=== PATIENT | male | born 1960 | race African-American/Black ===

== ENCOUNTER 2021-03-27 12:15 | Observation (INO) | payer OTHER ==
[2021-03-27 12:20] LABS: Glucose,Whole Blood 172 mg/dL (75-99)
[2021-03-27] MEDS ORDERED: hydrALAZINE HCL 20 MG/ML 1 ML VIAL IVP STA (12:35)
[2021-03-27] MEDS ORDERED: SODIUM CHLORIDE 0.9% 500 ML 500 ML IV ONE (12:35)
--- NOTE | 2021-03-27 12:37 | ED ---
General Adult HPI - General Chief complaint: Fall Stated complaint: hypoglycemia & fall Time Seen by Provider: 03/27/21 12:15 Source: patient, EMS, RN notes reviewed, old records reviewed Mode of arrival: EMS Limitations: no limitations - History of Present Illness Initial comments: This is a 60-year-old male who presents emergency department after he had fallen and hit his head. Patient states she was home felt lightheaded and fell back and hit the back of his head. Patient states he did not lose consciousness he denies any headache he denies any neck pain denies any numbness weakness. Patient's sugar at the scene was 44 they gave him some sugar in route and his sugar went up to 202. Patient at this point time states he is asymptomatic. Dontrell rocha states he ate breakfast after taking his insulin but he did need is much is normal. Patient denies any chest pain difficulty breathing first breath per patient denies any fever chills or cough per patient denies any abdominal pain patient denies any nausea vomiting diarrhea. - Related Data Allergies Allergy/AdvReac Type Severity Reaction Status Date / Time No Known Allergies Allergy Verified 03/27/21 12:39 Review of Systems ROS Statement: Those systems with pertinent positive or pertinent negative responses have been documented in the HPI. ROS Other: All systems not noted in ROS Statement are negative. Past Medical History Past Medical History: Diabetes Mellitus History of Any Multi-Drug Resistant Organisms: None Reported Past Surgical History: No Surgical Hx Reported Past Psychological History: No Psychological Hx Reported Smoking Status: Current every day smoker Past Alcohol Use History: Occasional Past Drug Use History: None Reported General Exam - General Exam Comments Initial Comments: GENERAL: Patient is well-developed and well-nourished. Patient is nontoxic and well- hydrated and is in no acute distress. ENT: Neck is soft and supple. No significant lymphadenopathy is noted. Oropharynx is clear. Moist mucous membranes. Neck has full range of motion without eliciting any pain. Patient has no tenderness in the C-spine centrally or laterally. Patient's scalp has one very small area of tenderness no abrasion or laceration or hematoma noted. EYES: The sclera were anicteric and conjunctiva were pink and moist. Extraocular movements were intact and pupils were equal round and reactive to light. Eyelids were unremarkable. PULMONARY: Unlabored respirations. Good breath sounds bilaterally. No audible rales rhonchi or wheezing was noted. CARDIOVASCULAR: There is a regular rate and rhythm without any murmurs gallops or rubs. ABDOMEN: Soft and nontender with normal bowel sounds. SKIN: Skin is clear with no lesions or rashes and otherwise unremarkable. NEUROLOGIC: Patient is alert and oriented x3. Cranial nerves II through XII are grossly intact. Motor and sensory are also intact. Normal speech, volume and content. Symmetrical smile. MUSCULOSKELETAL: Normal extremities with adequate strength and full range of motion. LYMPHATICS: No significant lymphadenopathy is noted PSYCHIATRIC: Normal psychiatric evaluation. Limitations: no limitations Course Vital Signs 03/27/21 12:17 Temperature 97.6 F Pulse Rate 62 Respiratory 18 Rate Blood Pressure 164/94 O2 Sat by Pulse 100 Oximetry Medical Decision Making - Medical Decision Making EKG shows normal sinus rhythm at 60 bpm SD interval 174 QRS is 80 QT interval 420 QTC is 420. Patient's EKG shows no ST segment elevation or depression. Patient's CAT scan of the head and C-spine showed no acute abnormality. I spoke with but he agreed to admit the patient admitted the patient I consult to Dr. Mcguire in for medical management consult go for the new onset neal ryder. - Lab Data Result diagrams: 03/27/21 14:27 03/27/21 14:27 Lab Results 03/27/21 03/27/21 03/27/21 Range/Units 12:18 13:03 14:27 WBC 4.4 (3.8-10.6) k/uL RBC 4.14 L (4.30-5.90) m/uL Hgb 13.1 (13.0-17.5) gm/dL Hct 38.7 L (39.0-53.0) % MCV 93.5 (80.0-100.0) fL MCH 31.5 (25.0-35.0) pg MCHC 33.8 (31.0-37.0) g/dL RDW 15.1 (11.5-15.5) % Plt Count 252 (150-450) k/uL MPV 8.3 Neutrophils % 71 % Lymphocytes % 14 % Monocytes % 6 % Eosinophils % 7 % Basophils % 1 % Neutrophils # 3.1 (1.3-7.7) k/uL Lymphocytes # 0.6 L (1.0-4.8) k/uL Monocytes # 0.2 (0-1.0) k/uL Eosinophils # 0.3 (0-0.7) k/uL Basophils # 0.0 (0-0.2) k/uL Sodium (137-145) mmol/L Potassium (3.5-5.1) mmol/L Chloride (98-107) mmol/L Carbon Dioxide (22-30) mmol/L Anion Gap mmol/L BUN (9-20) mg/dL Creatinine (0.66-1.25) mg/dL Est GFR (CKD-EPI)AfAm (>60 ml/min/1.73 sqM) Est GFR (CKD-EPI)NonAf (>60 ml/min/1.73 sqM) Glucose (74-99) mg/dL POC Glucose (mg/dL) 172 H 90 (75-99) mg/dL POC Glu Mechanical Lead KRISTYN Clayton Brisa Ravinder Norma Calcium (8.4-10.2) mg/dL Total Bilirubin (0.2-1.3) mg/dL AST (17-59) U/L ALT (4-49) U/L Alkaline Phosphatase (38-126) U/L Total Protein (6.3-8.2) g/dL Albumin (3.5-5.0) g/dL 03/27/21 Range/Units 14:27 WBC (3.8-10.6) k/uL RBC (4.30-5.90) m/uL Hgb (13.0-17.5) gm/dL Hct (39.0-53.0) % MCV (80.0-100.0) fL MCH (25.0-35.0) pg MCHC (31.0-37.0) g/dL RDW (11.5-15.5) % Plt Count (150-450) k/uL MPV Neutrophils % % Lymphocytes % % Monocytes % % Eosinophils % % Basophils % % Neutrophils # (1.3-7.7) k/uL Lymphocytes # (1.0-4.8) k/uL Monocytes # (0-1.0) k/uL Eosinophils # (0-0.7) k/uL Basophils # (0-0.2) k/uL Sodium 138 (137-145) mmol/L Potassium 4.5 (3.5-5.1) mmol/L Chloride 108 H (98-107) mmol/L Carbon Dioxide 20 L (22-30) mmol/L Anion Gap 10 mmol/L BUN 12 (9-20) mg/dL Creatinine 0.61 L (0.66-1.25) mg/dL Est GFR (CKD-EPI)AfAm >90 (>60 ml/min/1.73 sqM) Est GFR (CKD-EPI)NonAf >90 (>60 ml/min/1.73 sqM) Glucose 42 L* (74-99) mg/dL POC Glucose (mg/dL) (75-99) mg/dL POC Glu Mechanical Lead ID Calcium 9.2 (8.4-10.2) mg/dL Total Bilirubin 0.3 (0.2-1.3) mg/dL AST 25 (17-59) U/L ALT 14 (4-49) U/L Alkaline Phosphatase 65 (38-126) U/L Total Protein 6.4 (6.3-8.2) g/dL Albumin 3.6 (3.5-5.0) g/dL Disposition Clinical Impression: Hypoglycemia, Fall, New onset seizure, Concussion Disposition: [facility] Instructions (If sedation given, give patient instructions): Seizure/Epilepsy Discharge Instructions & Follow-Up Referrals: Alphonso Jack MD [Primary Care Provider] - 1-2 days Time of Disposition: 15:08
[2021-03-27] MEDS ORDERED: LORazepam 2 MG/ML INJ IV STA (13:00)
[2021-03-27 13:04] LABS: Glucose,Whole Blood 90 mg/dL (75-99)
[2021-03-27] MEDS ORDERED: DIPH,PERTUS(ACELL)TETVAC-LF 0.5 ML VIAL IM ONE (13:11)
--- NOTE | 2021-03-27 14:12 | CT ---
EXAMINATION TYPE: CT brain jaret johns DATE OF EXAM: 03/27/2021 COMPARISON: NONE HISTORY: Fall injury and seizure with neck pain CT DLP: 1332.7 mGycm. Automated Exposure Control for Dose Reduction was Utilized. TECHNIQUE: CT scan of the head and cervical spine are performed without contrast. FINDINGS: There is no acute intracranial hemorrhage, mass effect, or midline shift identified. The ventricles and sulci are within normal limits in size for patient's age. Whitehead-white matter different iation is maintained. Small midline acute frontal scalp hematoma axial image 31. The calvarium is int act. The globes are intact and the visualized sinuses are clear. Cervical spine is visualized in its entirety from C1 through upper thoracic levels and demonstrates f low. Normal cervical curvature centered at C3-C4 level without evidence of acute fracture or dislocat ion. Prevertebral soft tissue appears within normal limits. The C1-C2 articulation is within normal limits on the coronal images. Vertebral body heights are maintained. Moderate disc space narrowing C3-C4 level with diffuse sclerosis of the vertebra. Slight grade 1 retrolisthesis C4 on C5. Mild to m oderate disc space narrowing C4-C5 and C5-C6 levels. Mild to moderate anterior spurring C5-C6 level. Review of axial images shows multilevel left-sided uncovertebral facet degenerative changes causing m ultilevel left-sided neural foraminal narrowing. There is mild to moderate calcified plaque right gre ater than left carotid bulbs. Thyroid gland is within normal limits. Lung apices show mild to moderat e emphysematous change but no pneumothorax. There is left arch with aberrant right brachiocephalic ar armida running posterior to the esophagus, normal variant. IMPRESSION: 1. There is no acute fracture or dislocation evident in the cervical spine. 2. No acute intracranial hemorrhage or midline shift is seen.
[2021-03-27 14:36] LABS: Basophils % (A) 1 %; Eosinophils # (A) 0.3 k/uL (0-0.7); Eosinophils % (A) 7 %; HCT 38.7 % (39.0-53.0); HGB 13.1 gm/dL (13.0-17.5); Lymphocytes # (A) 0.6 k/uL (1.0-4.8); Lymphocytes % (A) 14 %; MCH 31.5 pg (25.0-35.0); MCHC 33.8 g/dL (31.0-37.0); MCV 93.5 fL (80.0-100.0); Mean Platelet Volume 8.3; Monocytes # (A) 0.2 k/uL (0-1.0); Monocytes % (A) 6 %; Neutrophils # (A) 3.1 k/uL (1.3-7.7); Neutrophils % (A) 71 %; Platelet Count 252 k/uL (150-450); RBC 4.14 m/uL (4.30-5.90); RDW 15.1 % (11.5-15.5); WBC 4.4 k/uL (3.8-10.6)
[2021-03-27 14:46] LABS: ALT 14 U/L (4-49); AST 25 U/L (17-59); African American GFR (CKD) >90 (>60 ml/min/1.73 sqM); Albumin 3.6 g/dL (3.5-5.0); Alkaline Phosphatase 65 U/L (38-126); Anion Gap 10 mmol/L; Blood Urea Nitrogen 12 mg/dL (9-20); Calcium 9.2 mg/dL (8.4-10.2); Carbon Dioxide 20 mmol/L (22-30); Chloride 108 mmol/L (98-107); Non-African American GFR(CKD) >90 (>60 ml/min/1.73 sqM); Sodium 138 mmol/L (137-145); Total Bilirubin 0.3 mg/dL (0.2-1.3); Total Protein 6.4 g/dL (6.3-8.2)
[2021-03-27 14:51] LABS: Glucose 42 mg/dL (74-99); Potassium 4.5 mmol/L (3.5-5.1)
[2021-03-27] MEDS ORDERED: DEXTROSE 50% SYRINGE 50 ML IVP STA (14:56)
[2021-03-27 15:08] LABS: Glucose,Whole Blood 55 mg/dL (75-99)
[2021-03-27] MEDS ORDERED: SODIUM CHLORIDE 0.9% 1,000 ML IV ONE (15:09)
--- NOTE | 2021-03-27 15:09 | XR ---
EXAMINATION TYPE: XR chest 2V DATE OF EXAM: 03/27/2021 COMPARISON: NONE HISTORY: Difficulty breathing TECHNIQUE: Frontal and lateral views of the chest are obtained. FINDINGS: There is no focal air space opacity, pleural effusion, or pneumothorax seen. The cardiac silhouette size is within normal limits. Aorta is dense. A shunt is rotated and there are overlying a rtifacts. The osseous structures are intact. IMPRESSION: No acute cardiopulmonary process. Rotated exam, follow-up as indicated
[2021-03-27 16:17] LABS: Glucose,Whole Blood 121 mg/dL (75-99)
[2021-03-27 17:24] LABS: Glucose,Whole Blood 94 mg/dL (75-99)
--- NOTE | 2021-03-27 18:02 | P.CNNES ---
History of Present Illness Consult date: 03/27/21 Requesting physician: Giorgio Seaman Reason for Consult: new onset seizure History of Present Illness: This is a 60-year-old gentleman history of diabetes and hypertension who presented after a fall and hitting his head. Some of the history is obtained from patient's significant other (who is at bedside) and medical records. Per his she stated that he was at home and his sugar was low and so he tried to get up and fell backward. He did not have seizure-like activity at home. He notified the ED team that he felt lightheaded and fell back in his head but denies losing consciousness, denies any weakness, numbness or neck pain. Per the ED note that the patient sugar at the scene was 44 and the patient was given sugar and sugar went up to 200. Per patient he denies history of stroke, TIA, seizure or brain mass. Patient denies any history of demylinating disease. Currently he denies of any focal weakness, numbness. He denies of any headache. Per his his he had a few episode of hypoglycemia about 3 months ago. He medication were modified by his PCP around that time. He socially drinks alcohol. He denies of tobacco use or illicit drug use. Patient denies any family history of seizure or demylinating disease. In the ED per the nurse the patient was in x-ray and had a seizure-like episode where per nurse where he was flaccid throughout all extremity and his eyes was harboring right and left and then he had a bowel accidents as well as that he was a having drooling of his mouth. He didn't have any jerk in of any extremities or urinary incontinence. The patient did hit the front side of the head. The episode lasted 5 minutes. His sugar on presentation was POC 172 and then repeat it was 90 then he had a serum glucose of 40-1427 and then he had a POC glucose of 55 and then he received 1 amp of dextrose and then it went to 121. He was given 2mg of Ativan in the ED team. Other workup in the ED: Initial vital signs his blood pressure of 164/94, heart rate of 62, respiratory of 18, temperature of 97.6 oral and pulse ox of 100% room air. The patient repeated blood pressure was 182/115. CBC with differential as hematocrit is 38.7 which is unremarkable. Patient white blood cell is 4.4 thousand which is within normal limits. Chemistry panel is the sodium is 138, creatinine is 0.61, calcium is 9.2, AST 25 ALT of 14 which is within normal limits. CT of the head is reported as no acute intracranial hemorrhage or midline shift. I personally reviewed the CT of the head and I felt the patient had hypodensity lesions over the right cerebellar, multiple over the right hemisphere (subcortical frontal, temporal) and lucunar over left subcorital frontal. CT of the cervical spine is reported as there is no acute fracture or dislocation evident in the cervical spine. Reviewed the CT of the cervical spine and the patient has spondylosis over the C3-C4 region which seems moderate. Review of Systems Review of system: The 12 point system was reviewed and apparent positive and negative per HPI. Past Medical History Past Medical History: Diabetes Mellitus History of Any Multi-Drug Resistant Organisms: None Reported Past Surgical History: No Surgical Hx Reported Past Psychological History: No Psychological Hx Reported Smoking Status: Current every day smoker Past Alcohol Use History: Occasional Past Drug Use History: None Reported Medications and Allergies Home Medications Medication Instructions Recorded Confirmed Type Insulin Glargine,Hum.rec.anlog 14 unit SQ HS 03/27/21 03/27/21 History [Lantus Solostar Pen] Allergies Allergy/AdvReac Type Severity Reaction Status Date / Time No Known Allergies Allergy Verified 03/27/21 15:40 Physical Examination - Vital Signs Vital Signs: Vital Signs Temp Pulse Resp BP Pulse Ox 03/27/21 16:27 69 18 134/91 100 03/27/21 13:50 63 18 167/106 100 03/27/21 13:20 62 18 182/115 100 03/27/21 12:17 97.6 F 62 18 164/94 100 Intake and Output 03/27/21 03/27/21 03/27/21 06:59 14:59 22:59 Other: Weight 56.699 kg GENERAL: The patient is lying in bed and is not in acute distress. HENT: Has bruise over the midfrontal region. CHEST: The heart rate is regular rate rhythm. No murmurs to auscultation. LUNG: Clear to auscultation bilaterally no wheezing noted throughout. Not labored breathing. ABDOMEN/GI: Bowel sounds present in all 4 quadrants. No tenderness to palpation throughout. NEUROLOGICAL: Somewhat limited since received 2mg of Ativan. Higher mental function: The patient is awake, alert, oriented to self, place and time. He is able to name objects (watch and pen). Patient seems somewhat slow in responding and commands had to be repeated to him. He correctly stated the current state we are in. Patient is following commands. No aphasia and no neglect. Cranial nerves: The pupils are round, equal and reactive to light. Visual coreas are full to confrontation throughout. Extraocular movement is intact no nystagmus is noted. Facial sensation is normal to touch throughout. The facial strength is normal throughout. Tongue is midline and moved [id number] without any difficulty. No tongue bite is noted. No dysarthria is noted. Shoulder shrug is normal bilaterally. Motor: Gait is deferred. The strength is 5 over 5 throughout. Normal tone and bulk. Cerebellum: Normal finger to nose. But heel to leon seems very subtle over the right side and normal over the left. Sensation: Sensation is normal to touch throughout. Reflexes (right/left): 2+ throughout uppers excepts biceps are 1+. Patellar are 3+ bilaterally and ankles are 1+. Plantars are mute bilaterally. Results - Laboratory Findings CBC and BMP: 03/27/21 14:27 03/27/21 14:27 Abnormal Lab Findings: Abnormal Labs 03/27/21 03/27/21 03/27/21 12:18 14:27 14:27 RBC 4.14 L Hct 38.7 L Lymphocytes # 0.6 L Chloride 108 H Carbon Dioxide 20 L Creatinine 0.61 L Glucose 42 L* POC Glucose (mg/dL) 172 H 03/27/21 03/27/21 15:06 16:15 RBC Hct Lymphocytes # Chloride Carbon Dioxide Creatinine Glucose POC Glucose (mg/dL) 55 L 121 H Assessment and Plan Assessment: New onset seizure: Seems provoked from hypoglycemia (was hypoglycemic at home was 44 and in our facility was in 40's) but on CT head I felt the patient had hypodensity lesions over the right cerebellar, multiple over the right he misphere (subcortical frontal, temporal) and lucunar over left subcorital frontal: Rule out old stroke. Cannot rule out mass. Episode of hypoglycemia (with sugar as low as 42) Diabetes mellitus (Sugar seems brittle, had hypoglycemia today as well episodes of hypoglycemia about 3 months ago). Hypertension Plan: I ordered MRI the brain with and without stat. Ordered urgent EEG which will happen tomorrow. Patient and significant other want to hold off antiepileptic drug until further evaluation. Placed on seizure precaution and the pads. Ordered 2D echo, carotid duplex and HbA1c. Every 4 hours neuro checks. PT, OT are consulted Fall risk Please avoid any hypoglycemia will defer the management to the primary team. We'll defer the rest of medical management to primary team. The plan is discussed with the patient and his significant other who is at bedside (I personally reviewed images with them). Thank you for the consultation. Vikash Bryant M.D. Neuro-hospitalist Time with Patient: Greater than 30
[2021-03-27 18:13] LABS: Glucose,Whole Blood 86 mg/dL (75-99)
[2021-03-27 19:29] LABS: Glucose,Whole Blood 112 mg/dL (75-99)
[2021-03-27] MEDS ORDERED: ACETAMINOPHEN TAB 325 MG TAB PO PRN (19:50)
--- NOTE | 2021-03-27 19:50 | P.GSHP ---
History of Present Illness H&P Date: 03/27/21 Chief Complaint: Status post fall 60-year-old male comes to the ER today after falling at home. Patient fell and struck the back of his head. His step daughter was there and states that he did lose consciousness briefly. Patient was hypoglycemic. He apparently has had ep isodes similar to this but never fell. Patient with history of diabetes and hypertension. While in the hospital being evaluated he went for x-ray. In x- ray he apparently had seizure-like activity fell and struck his forehead. No laceration at either site. Small puncture wound noted on the forehead. Patient was admitted to our service because of a history of fall and traumatic event. Being seen by medicine and neurology. Neuro has initiated a full workup. MRI of the brain has been ordered to evaluate for stroke or mass. Patient's hypoglycemia is being treated as well. Patient denies pain. No headache. No change in vision. No trouble breathing. - Review of Systems Comment: The patient denies any acute changes in vision or hearing, no dysphagia or odynophagia, no chest pain or shortness of breath, no dysuria or hematuria, no headache, no runny nose, no rectal bleeding or melena, no unexplained weight loss Past Medical History Past Medical History: Diabetes Mellitus History of Any Multi-Drug Resistant Organisms: None Reported Past Surgical History: No Surgical Hx Reported Past Psychological History: No Psychological Hx Reported Smoking Status: Current every day smoker Past Alcohol Use History: Occasional Past Drug Use History: None Reported Medications and Allergies Home Medications Medication Instructions Recorded Confirmed Type Insulin Glargine,Hum.rec.anlog 14 unit SQ HS 03/27/21 03/27/21 History [Lantus Solostar Pen] Allergies Allergy/AdvReac Type Severity Reaction Status Date / Time No Known Allergies Allergy Verified 03/27/21 15:40 Surgical - Exam Vital Signs Temp Pulse Resp BP Pulse Ox 97.6 F 62 18 164/94 100 03/27/21 12:17 03/27/21 12:17 03/27/21 12:17 03/27/21 12:17 03/27/21 12:17 Physical exam: General: Well-developed, well-nourished HEENT: Small induration with 1 mm puncture wound forehead midline, sclerae nonicteric Abdomen: Nontender, nondistended Extremities: No edema Neuro: Alert and oriented Results - Labs 03/27/21 14:27 03/27/21 14:27 Abnormal Lab Results - Last 24 Hours (Table) 03/27/21 03/27/21 03/27/21 Range/Units 12:18 14:27 14:27 RBC 4.14 L (4.30-5.90) m/uL Hct 38.7 L (39.0-53.0) % Lymphocytes # 0.6 L (1.0-4.8) k/uL Chloride 108 H (98-107) mmol/L Carbon Dioxide 20 L (22-30) mmol/L Creatinine 0.61 L (0.66-1.25) mg/dL Glucose 42 L* (74-99) mg/dL POC Glucose (mg/dL) 172 H (75-99) mg/dL 03/27/21 03/27/21 03/27/21 Range/Units 15:06 16:15 19:09 RBC (4.30-5.90) m/uL Hct (39.0-53.0) % Lymphocytes # (1.0-4.8) k/uL Chloride (98-107) mmol/L Carbon Dioxide (22-30) mmol/L Creatinine (0.66-1.25) mg/dL Glucose (74-99) mg/dL POC Glucose (mg/dL) 55 L 121 H 112 H (75-99) mg/dL Diabetes panel 03/27/21 Range/Units 14:27 Sodium 138 (137-145) mmol/L Potassium 4.5 (3.5-5.1) mmol/L Chloride 108 H (98-107) mmol/L Carbon Dioxide 20 L (22-30) mmol/L BUN 12 (9-20) mg/dL Creatinine 0.61 L (0.66-1.25) mg/dL Glucose 42 L* (74-99) mg/dL Calcium 9.2 (8.4-10.2) mg/dL AST 25 (17-59) U/L ALT 14 (4-49) U/L Alkaline Phosphatase 65 (38-126) U/L Total Protein 6.4 (6.3-8.2) g/dL Albumin 3.6 (3.5-5.0) g/dL Calcium panel 03/27/21 Range/Units 14:27 Calcium 9.2 (8.4-10.2) mg/dL Albumin 3.6 (3.5-5.0) g/dL Pituitary panel 03/27/21 Range/Units 14:27 Sodium 138 (137-145) mmol/L Potassium 4.5 (3.5-5.1) mmol/L Chloride 108 H (98-107) mmol/L Carbon Dioxide 20 L (22-30) mmol/L BUN 12 (9-20) mg/dL Creatinine 0.61 L (0.66-1.25) mg/dL Glucose 42 L* (74-99) mg/dL Calcium 9.2 (8.4-10.2) mg/dL Adrenal panel 03/27/21 Range/Units 14:27 Sodium 138 (137-145) mmol/L Potassium 4.5 (3.5-5.1) mmol/L Chloride 108 H (98-107) mmol/L Carbon Dioxide 20 L (22-30) mmol/L BUN 12 (9-20) mg/dL Creatinine 0.61 L (0.66-1.25) mg/dL Glucose 42 L* (74-99) mg/dL Calcium 9.2 (8.4-10.2) mg/dL Total Bilirubin 0.3 (0.2-1.3) mg/dL AST 25 (17-59) U/L ALT 14 (4-49) U/L Alkaline Phosphatase 65 (38-126) U/L Total Protein 6.4 (6.3-8.2) g/dL Albumin 3.6 (3.5-5.0) g/dL Assessment and Plan (1) Fall Narrative/Plan: 60-year-old male with fall possibly related to hypoglycemic episode. Patient had concussive symptoms and syncope. Appreciate neurology prompt evaluation. Await further workup. We'll transfer to the hospitalist service tomorrow if no acute injury identified. Current Visit: Yes Status: Acute Code(s): W19.XXXA - UNSPECIFIED FALL, INITIAL ENCOUNTER SNOMED Code(s): 8986556
[2021-03-27] MEDS ORDERED: Magnesium Replacement Protocol 1 EACH MISC MISCELLANE PRN (20:11)
[2021-03-27] MEDS ORDERED: Potassium Replacement Protocol 1 EACH MISC MISCELLANE PRN (20:11)
[2021-03-27 20:36] LABS: Glucose,Whole Blood 123 mg/dL (75-99)
--- NOTE | 2021-03-27 20:54 | XR ---
EXAMINATION: XR chest 1V portable DATE AND TIME: 03/27/2021 8:44 PM CLINICAL INDICATION: PHH; chf TECHNIQUE: AP portable upright COMPARISON: None FINDINGS: The lungs are clear. The pleural spaces are negative. The cardiac silhouette is not enlarged. The remainder of the mediastinal silhouette is unremarkable. The skeletal structures and soft tissues are negative for acute findings. IMPRESSION: NO ACUTE PROCESS.
--- NOTE | 2021-03-27 21:25 | CONS ---
CONSULTATION DATE OF SERVICE: 03/27/2021 REASON FOR CONSULTATION: Advice regarding diabetes and other medical issues requested by Surgery. HISTORY OF PRESENT ILLNESS: This 60-year-old gentleman with a past medical history of diabetes mellitus, history of nicotine abuse, being followed by Dr. Jack in the outpatient setting, apparently had a fall at home and the patient apparently hit the back of his head. The patient's blood sugar was found to be 44 and subsequently sugar went up into the 200s and the patient was taken to [facility] and in the ER also the patient another seizure, during which the patient sustained a bump and an abrasion in the front of the head. The patient was admitted for evaluation and treatment. Neurology evaluation in progress. A CT scan was done which showed no acute abnormality. There is no history any fever, rigors or chills at this time. Patient is being closely monitored. There is no history of any chest pain or palpitations, either. PAST MEDICAL HISTORY: Diabetes mellitus, history of nicotine dependence. MEDICATIONS: Lantus 40 units subcutaneously at bedtime. ALLERGIES: NONE. FAMILY HISTORY: History of hypertension in the family. SOCIAL HISTORY: Previous history of smoking. Occasional alcohol intake. No history of substance abuse. REVIEW OF SYSTEMS: ENT: As mentioned earlier. CARDIOVASCULAR SYSTEM: No angina, palpitations. RESPIRATORY SYSTEM: No cough, hemoptysis. GI: No nausea, vomiting, diarrhea. : No dysuria. NERVOUS SYSTEM: As mentioned earlier. ALLERGY/IMMUNOLOGY: No asthma or hay fever. MUSCULOSKELETAL: As mentioned earlier. HEMATOLOGY/ONCOLOGY: No history of anemia. ENDOCRINE: As mentioned earlier. CONSTITUTIONAL: As mentioned earlier. DERMATOLOGY: Negative. RHEUMATOLOGY: Negative. PSYCHIATRY: As mentioned earlier. PHYSICAL EXAMINATION: Alert and oriented . Pulse 62, blood pressure 172/99, improved to 133/80, respirations 16, temperature 97.9, pulse ox 99% on room air. HEENT: Conjunctivae normal. NECK: No jugular venous distention. CARDIOVASCULAR: S1, S2 muffled. RESPIRATION: Breath sounds diminished at the bases. Scattered rhonchi and crackles. ABDOMEN: Soft, nontender. No mass palpable. LEGS: No edema. No swelling. NERVOUS SYSTEM: Higher functions as mentioned earlier. Moves all 4 limbs. No focal motor or sensory deficit. LYMPHATICS: No lymph node palpable in neck, axillae or groin. SKIN: No ulcer, rash, bleeding. JOINTS: No active deforming arthropathy. LABS: Labs at this time: glucose noted. Otherwise, WBC 4.3, hemoglobin 13.2, sodiumntd, potassium 4.5. Glucose was 40. ASSESSMENT: 1. Generalized tonic-clonic seizures related to hypoglycemia. 2. Decreased carbon dioxide. 3. Change in mental status, metabolic encephalopathy secondary to seizures. 4. History of nicotine dependence. 5. Mild protein-calorie malnutrition with body mass index of 19. RECOMMENDATION AND DISCUSSION: In this 60-year-old gentleman who presented with multiple complex medical issues, we will monitor the patient closely, continue the current medications, continue symptomatic treatment. Will stop the insulin. Continue to monitor. Closely follow with Neurology. Guarded prognosis because of multiple complex medical issues. Further recommendations to follow. A copy of this dictation is being forwarded to Dr. Jack, who is the primary physician. OZZYL / WINNIEN: [id number] / MTDD
[2021-03-27 21:48] LABS: Glucose,Whole Blood 99 mg/dL (75-99)
--- NOTE | 2021-03-27 22:07 | US ---
EXAMINATION TYPE: US carotid duplex BILAT DATE OF EXAM: 03/27/2021 COMPARISON: NONE CLINICAL HISTORY: lesion in brain. Possible Stroke. EXAM MEASUREMENTS: RIGHT: Peak Systolic Velocity (PSV) cm/sec ----- Right CCA: 52.6 ----- Right ICA: 65.9 ----- Right ECA: 79.1 ICA/CCA ratio: 1.3 RIGHT: End Diastole cm/sec ----- Right CCA: 18.8 ----- Right ICA: 21.4 ----- Right ECA: 17.8 LEFT: Peak Systolic Velocity (PSV) cm/sec ----- Left CCA: 96.2 ----- Left ICA: 51.5 ----- Left ECA: 61.9 ICA/CCA ratio: 0.5 LEFT: End Diastole cm/sec ----- Left CCA: 17.2 ----- Left ICA: 20.8 ----- Left ECA: 61.9 VERTEBRALS (direction of flow): Right Vertebral: Antegrade Left Vertebral: Antegrade Rhythm: Normal Mild plaque bilateral bulbs. No elevated velocities IMPRESSION: There is antegrade flow in the vertebral arteries. The images and measurements suggest less than 20% stenosis in both internal carotid arteries. NASCET criteria was used in interpretation of this exam? Criteria for Assigning % of Stenosis / Diameter reduction (Estimation based on the indirect measurements of the internal carotid artery velocities (ICA PSV). 1. Normal (no stenosis)=ICA PSV < 125 cm/s: ratio < 2.0: ICA EDV<40 cm/s. 2. Less than 50% stenosis=ICA PSV < 125 cm/s: ratio < 2.0: ICA EDV<40 cm/s. 3. 50 to 69% stenosis=ICA PSV of 125 to 230 cm/s: ration 2.0 ? 4.0: ICA EDV 40-100 cm/s. 4. Greater than 70% stenosis to near occlusion= ICA PSV > 230 cm/s: ratio > 4.0: ICA EDV > 100 cm/s. 5. Near occlusion= ICA PSV velocities may be low or undetectable: variable ratio and ICA EDV. 6. Total occlusion=unable to detect flow.
[2021-03-27] MEDS: HEPARIN SODIUM,PORCINE/PF 5,000 UNIT/0.5 ML SYRINGE SQ SCH (23:23)
[2021-03-27 23:37] LABS: Glucose,Whole Blood 145 mg/dL (75-99)
[2021-03-28 00:38] LABS: Glucose,Whole Blood 168 mg/dL (75-99)
[2021-03-28 01:50] LABS: Glucose,Whole Blood 156 mg/dL (75-99)
[2021-03-28 02:58] LABS: Glucose,Whole Blood 128 mg/dL (75-99)
[2021-03-28 03:35] LABS: Glucose,Whole Blood 113 mg/dL (75-99)
[2021-03-28 04:36] LABS: Hemoglobin A1C 6.9 % (4.0-6.0)
[2021-03-28 05:23] LABS: Glucose,Whole Blood 114 mg/dL (75-99)
[2021-03-28 06:18] LABS: Basophils % (A) 0 %; Eosinophils # (A) 0.6 k/uL (0-0.7); Eosinophils % (A) 12 %; HGB 12.9 gm/dL (13.0-17.5); Lymphocytes # (A) 1.5 k/uL (1.0-4.8); Lymphocytes % (A) 32 %; MCH 30.7 pg (25.0-35.0); MCHC 32.3 g/dL (31.0-37.0); MCV 94.8 fL (80.0-100.0); Mean Platelet Volume 9.1; Monocytes # (A) 0.4 k/uL (0-1.0); Monocytes % (A) 8 %; Neutrophils # (A) 2.2 k/uL (1.3-7.7); Neutrophils % (A) 47 %; Platelet Count 238 k/uL (150-450); Poikilocytosis Slight; RBC 4.22 m/uL (4.30-5.90); RDW 15.2 % (11.5-15.5); WBC 4.7 k/uL (3.8-10.6)
[2021-03-28 06:27] LABS: Glucose,Whole Blood 120 mg/dL (75-99)
[2021-03-28 06:38] LABS: African American GFR (CKD) >90 (>60 ml/min/1.73 sqM); Anion Gap 5 mmol/L; Blood Urea Nitrogen 12 mg/dL (9-20); Calcium 9.2 mg/dL (8.4-10.2); Carbon Dioxide 20 mmol/L (22-30); Chloride 110 mmol/L (98-107); Glucose 114 mg/dL (74-99); Magnesium 1.7 mg/dL (1.6-2.3); Non-African American GFR(CKD) >90 (>60 ml/min/1.73 sqM); Potassium 4.4 mmol/L (3.5-5.1); Sodium 135 mmol/L (137-145)
[2021-03-28 06:42] LABS: Glucose,Whole Blood 115 mg/dL (75-99)
[2021-03-28] MEDS: HEPARIN SODIUM,PORCINE/PF 5,000 UNIT/0.5 ML SYRINGE SQ SCH ×2 (07:44→15:11)
[2021-03-28 08:08] LABS: Glucose,Whole Blood 125 mg/dL (75-99)
[2021-03-28 08:10] LABS: Appearance,Urine Clear (Clear); Bilirubin,Urine Negative (Negative); Blood,Urine Negative (Negative); Color,Urine Light Yellow; Glucose,Urine (UA) Negative (Negative); Ketones,Urine Negative (Negative); Leukocyte Esterase,Urine Negative (Negative); Nitrite,Urine Negative (Negative); PH, Urine 5.5 (5.0-8.0); Protein,Urine Negative (Negative); Specific Gravity,Urine 1.008 (1.001-1.035); Urobilinogen,Urine <2.0 mg/dL (<2.0)
[2021-03-28 08:21] LABS: Amphetamine Screen,Urine Not Detected (NotDetected); Benzodiazepines Screen,Urine Detected (NotDetected); Cocaine Screen,Urine Detected (NotDetected); Opiate Screen,Urine Detected (NotDetected); Phencyclidine Screen,Urine Not Detected (NotDetected); Urn Cannabinoid Scrn Not Detected (NotDetected)
[2021-03-28 08:22] LABS: Barbiturate Screen,Urine Not Detected (NotDetected); Methadone Screen, Urine Not Detected (NotDetected); Oxycodone Screen, Urine Not Detected (NotDetected); Tricyclic Antidepressant,Urine Not Detected (NotDetected)
[2021-03-28] MEDS ORDERED: Magnesium Replacement Protocol 1 EACH MISC MISCELLANE PRN (09:37)
--- NOTE | 2021-03-28 11:20 | P.PN ---
<TonioElla mello - Last Filed: 03/28/21 11:13> Subjective Progress Note Date: 03/28/21 CHIEF COMPLAINT: Status post fall HISTORY OF PRESENT ILLNESS: Patient is status post fall and hitting his head. He did lose consciousness. Patient has been seen by neurology. He has an MRI of the brain ordered for today EEG and echo. Patient is currently sitting at the bedside chair. He denies any headache or vision changes. Denies any dizziness or lightheadedness. His hypoglycemia has improved. He was able to tolerate a regular diet this morning. He's afebrile. Drug screen positive for opiates and benzodiazepine and cocaine PHYSICAL EXAM: VITAL SIGNS: Reviewed. GENERAL: Well-developed in no acute distress. HEENT: Small induration with 1 mm puncture wound forehead midline, abrasion noted ABDOMEN: Soft. Nondistended. Nontender. NEUROLOGIC: Alert and oriented. Cranial nerves II through XII grossly intact. ASSESSMENT: 1. Fall with trauma to forehead and left frontal hematoma 2. Loss of consciousness 3. Hypoglycemia 4. Possible seizure PLAN: -Continue neurological workup -Blood sugar management per medical service -Continue supportive care Physician Case Repairer note has been reviewed by physician. Signing provider agrees with the documented findings, assessment, and plan of care. Objective - Vital Signs Vital signs: Vital Signs Temp 98.2 F 03/28/21 05:15 Pulse 74 03/28/21 05:15 Resp 18 03/28/21 05:15 BP 123/75 03/28/21 05:15 Pulse Ox 99 03/28/21 05:15 Intake & Output 03/27/21 03/28/21 03/28/21 18:59 06:59 18:59 Intake Total 120 1290 Output Total 200 Balance -80 1290 Weight 56.699 kg Intake: Intake, IV Titration 750 Amount Sodium Chloride 0.9% 1, 750 000 ml @ 75 mls/hr IV . [id number] ONE Rx#:[id number] Oral 120 540 Output: Urine 200 Other: Voiding Method Toilet # Voids 1 1 # Bowel Movements 0 - Labs CBC & Chem 7: 03/28/21 05:18 03/28/21 05:18 Labs: Abnormal Lab Results - Last 24 Hours (Table) 03/27/21 03/27/21 03/27/21 Range/Units 12:18 14:27 14:27 RBC 4.14 L (4.30-5.90) m/uL Hgb (13.0-17.5) gm/dL Hct 38.7 L (39.0-53.0) % Lymphocytes # 0.6 L (1.0-4.8) k/uL Sodium (137-145) mmol/L Chloride 108 H (98-107) mmol/L Carbon Dioxide 20 L (22-30) mmol/L Creatinine 0.61 L (0.66-1.25) mg/dL Glucose 42 L* (74-99) mg/dL POC Glucose (mg/dL) 172 H (75-99) mg/dL Hemoglobin A1c (4.0-6.0) % Urine Opiates Screen (NotDetected) U Benzodiazepines Scrn (NotDetected) Urine Cocaine Screen (NotDetected) 03/27/21 03/27/21 03/27/21 Range/Units 14:27 15:06 16:15 RBC (4.30-5.90) m/uL Hgb (13.0-17.5) gm/dL Hct (39.0-53.0) % Lymphocytes # (1.0-4.8) k/uL Sodium (137-145) mmol/L Chloride (98-107) mmol/L Carbon Dioxide (22-30) mmol/L Creatinine (0.66-1.25) mg/dL Glucose (74-99) mg/dL POC Glucose (mg/dL) 55 L 121 H (75-99) mg/dL Hemoglobin A1c 6.9 H (4.0-6.0) % Urine Opiates Screen (NotDetected) U Benzodiazepines Scrn (NotDetected) Urine Cocaine Screen (NotDetected) 03/27/21 03/27/21 03/27/21 Range/Units 19:09 20:16 23:25 RBC (4.30-5.90) m/uL Hgb (13.0-17.5) gm/dL Hct (39.0-53.0) % Lymphocytes # (1.0-4.8) k/uL Sodium (137-145) mmol/L Chloride (98-107) mmol/L Carbon Dioxide (22-30) mmol/L Creatinine (0.66-1.25) mg/dL Glucose (74-99) mg/dL POC Glucose (mg/dL) 112 H 123 H 145 H (75-99) mg/dL Hemoglobin A1c (4.0-6.0) % Urine Opiates Screen (NotDetected) U Benzodiazepines Scrn (NotDetected) Urine Cocaine Screen (NotDetected) 03/28/21 03/28/21 03/28/21 Range/Units 00:37 01:46 02:56 RBC (4.30-5.90) m/uL Hgb (13.0-17.5) gm/dL Hct (39.0-53.0) % Lymphocytes # (1.0-4.8) k/uL Sodium (137-145) mmol/L Chloride (98-107) mmol/L Carbon Dioxide (22-30) mmol/L Creatinine (0.66-1.25) mg/dL Glucose (74-99) mg/dL POC Glucose (mg/dL) 168 H 156 H 128 H (75-99) mg/dL Hemoglobin A1c (4.0-6.0) % Urine Opiates Screen (NotDetected) U Benzodiazepines Scrn (NotDetected) Urine Cocaine Screen (NotDetected) 03/28/21 03/28/21 03/28/21 Range/Units 03:34 05:18 05:18 RBC 4.22 L (4.30-5.90) m/uL Hgb 12.9 L (13.0-17.5) gm/dL Hct (39.0-53.0) % Lymphocytes # (1.0-4.8) k/uL Sodium 135 L (137-145) mmol/L Chloride 110 H (98-107) mmol/L Carbon Dioxide 20 L (22-30) mmol/L Creatinine (0.66-1.25) mg/dL Glucose 114 H (74-99) mg/dL POC Glucose (mg/dL) 113 H (75-99) mg/dL Hemoglobin A1c (4.0-6.0) % Urine Opiates Screen (NotDetected) U Benzodiazepines Scrn (NotDetected) Urine Cocaine Screen (NotDetected) 03/28/21 03/28/21 03/28/21 Range/Units 05:21 06:14 06:42 RBC (4.30-5.90) m/uL Hgb (13.0-17.5) gm/dL Hct (39.0-53.0) % Lymphocytes # (1.0-4.8) k/uL Sodium (137-145) mmol/L Chloride (98-107) mmol/L Carbon Dioxide (22-30) mmol/L Creatinine (0.66-1.25) mg/dL Glucose (74-99) mg/dL POC Glucose (mg/dL) 114 H 120 H 115 H (75-99) mg/dL Hemoglobin A1c (4.0-6.0) % Urine Opiates Screen (NotDetected) U Benzodiazepines Scrn (NotDetected) Urine Cocaine Screen (NotDetected) 03/28/21 03/28/21 Range/Units 07:30 08:07 RBC (4.30-5.90) m/uL Hgb (13.0-17.5) gm/dL Hct (39.0-53.0) % Lymphocytes # (1.0-4.8) k/uL Sodium (137-145) mmol/L Chloride (98-107) mmol/L Carbon Dioxide (22-30) mmol/L Creatinine (0.66-1.25) mg/dL Glucose (74-99) mg/dL POC Glucose (mg/dL) 125 H (75-99) mg/dL Hemoglobin A1c (4.0-6.0) % Urine Opiates Screen Detected H (NotDetected) U Benzodiazepines Scrn Detected H (NotDetected) Urine Cocaine Screen Detected H (NotDetected) <Nathan Hung - Last Filed: 03/28/21 15:22> Subjective As above. Patient doing better. No further seizure episodes. We'll transfer to medical service. We will sign off once they accept. Objective - Vital Signs Vital signs: Vital Signs Temp 98.2 F 03/28/21 12:09 Pulse 54 L 03/28/21 12:09 Resp 18 03/28/21 12:09 BP 174/86 03/28/21 12:09 Pulse Ox 99 03/28/21 12:09 Intake & Output 03/27/21 03/28/21 03/28/21 18:59 06:59 18:59 Intake Total 120 1290 Output Total 200 Balance -80 1290 Weight 56.699 kg Intake: Intake, IV Titration 750 Amount Sodium Chloride 0.9% 1, 750 000 ml @ 75 mls/hr IV . [id number] ONE Rx#:[id number] Oral 120 540 Output: Urine 200 Other: Voiding Method Toilet # Voids 1 1 # Bowel Movements 0 - Labs CBC & Chem 7: 03/28/21 05:18 03/28/21 05:18 Labs: Abnormal Lab Results - Last 24 Hours (Table) 03/27/21 03/27/21 03/27/21 Range/Units 14:27 16:15 19:09 RBC (4.30-5.90) m/uL Hgb (13.0-17.5) gm/dL Sodium (137-145) mmol/L Chloride (98-107) mmol/L Carbon Dioxide (22-30) mmol/L Glucose (74-99) mg/dL POC Glucose (mg/dL) 121 H 112 H (75-99) mg/dL Hemoglobin A1c 6.9 H (4.0-6.0) % Total Bilirubin (0.2-1.3) mg/dL Total Protein (6.3-8.2) g/dL Albumin (3.5-5.0) g/dL Urine Opiates Screen (NotDetected) U Benzodiazepines Scrn (NotDetected) Urine Cocaine Screen (NotDetected) 03/27/21 03/27/21 03/28/21 Range/Units 20:16 23:25 00:37 RBC (4.30-5.90) m/uL Hgb (13.0-17.5) gm/dL Sodium (137-145) mmol/L Chloride (98-107) mmol/L Carbon Dioxide (22-30) mmol/L Glucose (74-99) mg/dL POC Glucose (mg/dL) 123 H 145 H 168 H (75-99) mg/dL Hemoglobin A1c (4.0-6.0) % Total Bilirubin (0.2-1.3) mg/dL Total Protein (6.3-8.2) g/dL Albumin (3.5-5.0) g/dL Urine Opiates Screen (NotDetected) U Benzodiazepines Scrn (NotDetected) Urine Cocaine Screen (NotDetected) 03/28/21 03/28/21 03/28/21 Range/Units 01:46 02:56 03:34 RBC (4.30-5.90) m/uL Hgb (13.0-17.5) gm/dL Sodium (137-145) mmol/L Chloride (98-107) mmol/L Carbon Dioxide (22-30) mmol/L Glucose (74-99) mg/dL POC Glucose (mg/dL) 156 H 128 H 113 H (75-99) mg/dL Hemoglobin A1c (4.0-6.0) % Total Bilirubin (0.2-1.3) mg/dL Total Protein (6.3-8.2) g/dL Albumin (3.5-5.0) g/dL Urine Opiates Screen (NotDetected) U Benzodiazepines Scrn (NotDetected) Urine Cocaine Screen (NotDetected) 03/28/21 03/28/21 03/28/21 Range/Units 05:18 05:18 05:21 RBC 4.22 L (4.30-5.90) m/uL Hgb 12.9 L (13.0-17.5) gm/dL Sodium 135 L (137-145) mmol/L Chloride 110 H (98-107) mmol/L Carbon Dioxide 20 L (22-30) mmol/L Glucose 114 H (74-99) mg/dL POC Glucose (mg/dL) 114 H (75-99) mg/dL Hemoglobin A1c (4.0-6.0) % Total Bilirubin <0.1 L (0.2-1.3) mg/dL Total Protein 5.5 L (6.3-8.2) g/dL Albumin 3.1 L (3.5-5.0) g/dL Urine Opiates Screen (NotDetected) U Benzodiazepines Scrn (NotDetected) Urine Cocaine Screen (NotDetected) 03/28/21 03/28/21 03/28/21 Range/Units 06:14 06:42 07:30 RBC (4.30-5.90) m/uL Hgb (13.0-17.5) gm/dL Sodium (137-145) mmol/L Chloride (98-107) mmol/L Carbon Dioxide (22-30) mmol/L Glucose (74-99) mg/dL POC Glucose (mg/dL) 120 H 115 H (75-99) mg/dL Hemoglobin A1c (4.0-6.0) % Total Bilirubin (0.2-1.3) mg/dL Total Protein (6.3-8.2) g/dL Albumin (3.5-5.0) g/dL Urine Opiates Screen Detected H (NotDetected) U Benzodiazepines Scrn Detected H (NotDetected) Urine Cocaine Screen Detected H (NotDetected) 03/28/21 03/28/21 Range/Units 08:07 12:24 RBC (4.30-5.90) m/uL Hgb (13.0-17.5) gm/dL Sodium (137-145) mmol/L Chloride (98-107) mmol/L Carbon Dioxide (22-30) mmol/L Glucose (74-99) mg/dL POC Glucose (mg/dL) 125 H 259 H (75-99) mg/dL Hemoglobin A1c (4.0-6.0) % Total Bilirubin (0.2-1.3) mg/dL Total Protein (6.3-8.2) g/dL Albumin (3.5-5.0) g/dL Urine Opiates Screen (NotDetected) U Benzodiazepines Scrn (NotDetected) Urine Cocaine Screen (NotDetected) Assessment and Plan (1) Fall Current Visit: Yes Status: Acute Code(s): W19.XXXA - UNSPECIFIED FALL, INITIAL ENCOUNTER SNOMED Code(s): 7207993
[2021-03-28] MEDS: MAGNESIUM SULFATE-D5W PMX 1 GM in DEXTROSE/WATER 1 100ML.BAG IVPB SCH ×2 (11:27→12:39)
--- NOTE | 2021-03-28 11:33 | EEG ---
ELECTROENCEPHALOGRAM REPORT DATE OF SERVICE: 03/28/2021 CLINICAL HISTORY: This is a 60-year-old gentleman who presented with new onset seizure. The video EEG is obtained to evaluate for seizure epileptiform activity. RELEVANT MEDICATION: Ativan 2 mg once. EEG TYPE: A routine 21 channel EEG is performed with video using the 10/20 electrode placement system. DESCRIPTION: Wakefulness is only obtained. During wakefulness, there is a posterior dominant rhythm of low to moderate voltage, reactive, well modulated of 9 hertz activity. There is no physiological sleep architecture seen. There is no focal slowing. Interictal and ictal are none. ACTIVATION PROCEDURE: Photic stimulation did not evoke a posterior driving response. There is no abnormality during the photic stimulation. Hyperventilation is not performed. CLINICAL INTERPRETATION: This is a normal routine EEG. There are no focal slowing, epileptiform discharges or seizure on the EEG. Clinical correlation is recommended. AARTI / SAVANNAH: [id number] / MTDD
--- NOTE | 2021-03-28 11:46 | MR ---
EXAMINATION TYPE: MR brain wo/w con DATE OF EXAM: 03/28/2021 COMPARISON: CT brain 03/27/2021 HISTORY: Passed out and hit head, seizure, multiple lesions on CT, R/O cva vs mass CONTRAST: Performed utilizing 6 mL intravenous Gadavist gadolinium contrast. TECHNIQUE: Multiplanar, multiecho imaging on a 3.0 Leida magnet is performed through the brain. Stud y is performed within 24 hours of arrival to the hospital. The craniovertebral junction is normal. The pituitary is normal. Diffusion-weighted imaging is performed. There are some punctate hyperintensities on diffusion weigh joselin imaging in the posterior left periventricular white matter. Small area of hyperintensity is withi n the medial right periventricular white matter may be within the corpus callosum. Series 508 image 2 16. There is some hyperintensity within subcortical white matter right frontal lobe. Series 4. Small amount of subcortical white matter changes in the right frontal lobe. Series 508 image 2-8. Findings can be compatible with acute ischemic changes. Some subtle mild increased signal may be within the inferior right cerebellum. This could be somewhat more subacute with symmetry perfusion. Underlying mass is felt to be less likely. Significant vasoge gia edema is not evident. There are scattered punctate areas of hyperintensity on T2 and Inversion Recovery weighted sequences which are non-specific but can be related to microvascular ischemic changes. This includes the brains tem and periventricular white matter as well as the centrum semiovale bilaterally. Ventricles and sulci are appropriate for the patient age. No suspicious enhancement is evident. IMPRESSIONS: 1. Scattered small diffusion hyperintensities including periventricular white matter bilaterally and right frontal lobe compatible with acute ischemic type changes. 2. Additional chronic appearing periventricular white matter ischemic type changes. 3. Diffusion increased signal inferior right cerebellum may have some enhancement. Subacute ischemic changes favored. Mass is felt to be less likely, follow-up can be performed as clinically indicated.
[2021-03-28 12:25] LABS: Glucose,Whole Blood 259 mg/dL (75-99)
[2021-03-28] MEDS: ASPIRIN 81 MG PO SCH (12:41)
[2021-03-28 13:54] LABS: ALT 14 U/L (4-49); AST 23 U/L (17-59); Albumin 3.1 g/dL (3.5-5.0); Albumin/Globulin Ratio 1.3; Alkaline Phosphatase 78 U/L (38-126); C Reactive Protein 0.5 mg/dL (<1.0); Globulin 2.4 g/dL; Total Bilirubin <0.1 mg/dL (0.2-1.3); Total Protein 5.5 g/dL (6.3-8.2)
--- NOTE | 2021-03-28 16:03 | P.PN ---
Subjective Progress Note Date: 03/28/21 The patient is seen at bedside and he is accompanied with his and he has not had any seizure. Today early in the morning he was walking with physical therapy on his own without assistance and was doing great per therapy. Patient denies history of drug use (such as cocaine, heroin). He stated he drinks occasionally. He had a urine drug screen which was positive for cocaine, opiate and benzo (of note, he was he was given benzo in the ED) Objective - Vital Signs Vital signs: Vital Signs Temp 98.2 F 03/28/21 12:09 Pulse 54 L 03/28/21 12:09 Resp 18 03/28/21 12:09 BP 174/86 03/28/21 12:09 Pulse Ox 99 03/28/21 12:09 Intake & Output 03/27/21 03/28/21 03/28/21 18:59 06:59 18:59 Intake Total 120 1290 Output Total 200 Balance -80 1290 Weight 56.699 kg Intake: Intake, IV Titration 750 Amount Sodium Chloride 0.9% 1, 750 000 ml @ 75 mls/hr IV . [id number] ONE Rx#:[id number] Oral 120 540 Output: Urine 200 Other: Voiding Method Toilet # Voids 1 1 # Bowel Movements 0 - Exam GENERAL: The patient is lying in bed and is not in acute distress. HENT: Has bruise over the midfrontal region. NEUROLOGICAL: Somewhat limited since received 2mg of Ativan. Higher mental function: The patient is awake, alert, oriented to self, place and time. He is able to name objects (watch and pen). Patient seems somewhat slow in responding and commands had to be repeated to him. He correctly stated the current state we are in. Patient is following commands. No aphasia and no neglect. Cranial nerves: The pupils are round, equal and reactive to light. Visual coreas are full to confrontation throughout. Extraocular movement is intact no nystagmus is noted. Facial sensation is normal to touch throughout. The facial strength is normal throughout. Tongue is midline and moved [id number] without any difficulty. No tongue bite is noted. No dysarthria is noted. Shoulder shrug is normal bilaterally. Motor: Gait is normal with normal arm swings. The strength is 5 over 5 throughout. Normal tone and bulk. Cerebellum: Normal finger to nose bilaterally. Sensation: Sensation is normal to touch throughout. Reflexes (right/left): 2+ throughout uppers excepts biceps are 1+. Patellar are 3+ bilaterally and ankles are 1+. Plantars are mute bilaterally. WORK-UP: Hemoglobin A1c 6.9. AST of 23 ALT of 14. CRP is 0.5. Routine EEG is normal. There are no focal slowing, epileptiform discharges or seizure on the EEG. MRI Brain: Scattered small diffusion hyperintensities occluding. Ventricular white matter bilaterally and the right frontal lobe compatible with acute ischemic type change s. Additional chronic appearing periventricular white matter ischemic type changes. Diffusion increased signal inferior right cerebellar may have some enhancement. Subacute ischemic change favoring. Mass is felt to be less likely, follow-up can be performed as quickly indicated. Carotid duplex is reported as there is antegrade flow in the vertebral arteries. Images and measurements suggest less than 20% stenosis in both internal carotid arteries. - Labs CBC & Chem 7: 03/28/21 05:18 03/28/21 05:18 Labs: Abnormal Lab Results - Last 24 Hours (Table) 03/27/21 03/27/21 03/27/21 Range/Units 14:27 16:15 19:09 RBC (4.30-5.90) m/uL Hgb (13.0-17.5) gm/dL Sodium (137-145) mmol/L Chloride (98-107) mmol/L Carbon Dioxide (22-30) mmol/L Glucose (74-99) mg/dL POC Glucose (mg/dL) 121 H 112 H (75-99) mg/dL Hemoglobin A1c 6.9 H (4.0-6.0) % Total Bilirubin (0.2-1.3) mg/dL Total Protein (6.3-8.2) g/dL Albumin (3.5-5.0) g/dL Urine Opiates Screen (NotDetected) U Benzodiazepines Scrn (NotDetected) Urine Cocaine Screen (NotDetected) 03/27/21 03/27/21 03/28/21 Range/Units 20:16 23:25 00:37 RBC (4.30-5.90) m/uL Hgb (13.0-17.5) gm/dL Sodium (137-145) mmol/L Chloride (98-107) mmol/L Carbon Dioxide (22-30) mmol/L Glucose (74-99) mg/dL POC Glucose (mg/dL) 123 H 145 H 168 H (75-99) mg/dL Hemoglobin A1c (4.0-6.0) % Total Bilirubin (0.2-1.3) mg/dL Total Protein (6.3-8.2) g/dL Albumin (3.5-5.0) g/dL Urine Opiates Screen (NotDetected) U Benzodiazepines Scrn (NotDetected) Urine Cocaine Screen (NotDetected) 03/28/21 03/28/21 03/28/21 Range/Units 01:46 02:56 03:34 RBC (4.30-5.90) m/uL Hgb (13.0-17.5) gm/dL Sodium (137-145) mmol/L Chloride (98-107) mmol/L Carbon Dioxide (22-30) mmol/L Glucose (74-99) mg/dL POC Glucose (mg/dL) 156 H 128 H 113 H (75-99) mg/dL Hemoglobin A1c (4.0-6.0) % Total Bilirubin (0.2-1.3) mg/dL Total Protein (6.3-8.2) g/dL Albumin (3.5-5.0) g/dL Urine Opiates Screen (NotDetected) U Benzodiazepines Scrn (NotDetected) Urine Cocaine Screen (NotDetected) 03/28/21 03/28/21 03/28/21 Range/Units 05:18 05:18 05:21 RBC 4.22 L (4.30-5.90) m/uL Hgb 12.9 L (13.0-17.5) gm/dL Sodium 135 L (137-145) mmol/L Chloride 110 H (98-107) mmol/L Carbon Dioxide 20 L (22-30) mmol/L Glucose 114 H (74-99) mg/dL POC Glucose (mg/dL) 114 H (75-99) mg/dL Hemoglobin A1c (4.0-6.0) % Total Bilirubin <0.1 L (0.2-1.3) mg/dL Total Protein 5.5 L (6.3-8.2) g/dL Albumin 3.1 L (3.5-5.0) g/dL Urine Opiates Screen (NotDetected) U Benzodiazepines Scrn (NotDetected) Urine Cocaine Screen (NotDetected) 03/28/21 03/28/21 03/28/21 Range/Units 06:14 06:42 07:30 RBC (4.30-5.90) m/uL Hgb (13.0-17.5) gm/dL Sodium (137-145) mmol/L Chloride (98-107) mmol/L Carbon Dioxide (22-30) mmol/L Glucose (74-99) mg/dL POC Glucose (mg/dL) 120 H 115 H (75-99) mg/dL Hemoglobin A1c (4.0-6.0) % Total Bilirubin (0.2-1.3) mg/dL Total Protein (6.3-8.2) g/dL Albumin (3.5-5.0) g/dL Urine Opiates Screen Detected H (NotDetected) U Benzodiazepines Scrn Detected H (NotDetected) Urine Cocaine Screen Detected H (NotDetected) 03/28/21 03/28/21 Range/Units 08:07 12:24 RBC (4.30-5.90) m/uL Hgb (13.0-17.5) gm/dL Sodium (137-145) mmol/L Chloride (98-107) mmol/L Carbon Dioxide (22-30) mmol/L Glucose (74-99) mg/dL POC Glucose (mg/dL) 125 H 259 H (75-99) mg/dL Hemoglobin A1c (4.0-6.0) % Total Bilirubin (0.2-1.3) mg/dL Total Protein (6.3-8.2) g/dL Albumin (3.5-5.0) g/dL Urine Opiates Screen (NotDetected) U Benzodiazepines Scrn (NotDetected) Urine Cocaine Screen (NotDetected) Assessment and Plan Assessment: * New onset seizure: Seems provoked from hypoglycemia (was hypoglycemic at home was 44 and in our facility was in 40's). Cocaine can also provoke seizures. (UDS was positive for cocaine). * Right frontal and scattered small diffusion over periventricular region bilaterally and right frontal lobe (Per MRI Brain) suggestive of old stroke. Seems embolic. Rule out cardioemolic. Another possibility is cocaine can cause vasoconstriction leading stroke. Patient has no focal deficits. * Right cerebellum diffusion seems subacute ischemic * Episode of hypoglycemia (with sugar as low as 42). Current HbA1c: 6.9 * positive for cocaine, opiate and benzo (of note, he was he was given benzo in the ED) * Diabetes mellitus (Sugar seems brittle, had hypoglycemia today as well episodes of hypoglycemia about 3 months ago). * Hypertension Plan: * I started the patient on aspirin 81 and not dual antiplatelet because of his episodes of fall which increases risk of a bleed. I started the patient on Lipitor 40 mg daily at bedtime for secondary stroke prophylaxis. * Patient wants to hold off antiepileptic drug for now. He was notified if he has any further seizure he needs to be placed on antiepileptic drug. * Placed on seizure precaution and the pads. * Pending 2D echo. * Ordered lipid panel , TSH level. * Every 4 hours neuro checks. * PT, OT are consulted * Fall risk precaution. * Consulted cardiology team for transesophageal echocardiogram to rule out cardio-emobli regarding stroke. * Placed patient on Thiamine 100mg daily. * Please avoid any hypoglycemia will defer the management to the primary team. * We'll defer the rest of medical management to primary team. * Patient was counseled on station of his cocaine use as well as opiate. * Regarding the patient episode of procedure he was notified that per [place] DMV he is to avoid driving for 6 month until Z seizure-free. He is to avoid the swimming unassisted, using heavy machinery and avoid heights until seizure-free. Patient stated he would like to leave home and get the rest of work-up as outpatient. The plan is discussed with the patient and his significant other. Vikash Bryant M.D. Neuro-hospitalist Time with Patient: Less than 30
--- NOTE | 2021-03-28 16:10 | PN ---
PROGRESS NOTE DATE OF SERVICE: 03/28/2021. This 60-year-old gentleman who was admitted with generalized tonic clonic seizures, being closely monitored. No chest pain. No palpitations. No fever. An EEG has been done. MRI of the brain showed periventricular some acute ischemic taper changes, subacute ischemic changes also suspected and EEG showed normal EEGs. The drug screen is positive for cocaine, benzodiazepines and opiates. Blood sugars mildly elevated. Possible embolic disease suspected at this time. PHYSICAL EXAMINATION: Alert and oriented x3. Pulse 54, blood pressure 174/83, respiration 18, temperature 98.2, pulse ox 98% on room air. HEENT: Conjunctivae normal. Neck: No JVD. Cardiovascular: S1, S2 muffled. Respiration: Breath sounds diminished in the bases. A few rhonchi. No crackles. Abdomen: Soft. Legs are no edema. No swelling. Nervous System: Diffusely weak. LAB STUDIES: WBC 4.7, hemoglobin 12.9, sodium 135 and glucose 114. Other labs noted. ASSESSMENT: 1. Generalized tonic-clonic seizures possibly hypoglycemia and multifactorial. 2. Rule out acute ischemic cerebrovascular disease. 3. Positive cocaine, benzodiazepines and opiates in the urine screen. 4. Decreased CO2. 5. Change in mental status acute metabolic toxic encephalopathy secondary to seizures. 6. History of nicotine dependence. 7. Mild protein calorie malnutrition with body mass index of 19. 8. Mild hyponatremia. 9. Anemia. RECOMMENDATIONS AND DISCUSSION: This 60-year-old gentleman who presented with multiple complex medical issues, we will monitor the patient closely, continue the current medications, and symptomatic treatment. Monitor blood sugars closely. Otherwise, repeat labs. Increase ambulation. Closely follow with surgery and as well as Neurology. Cardiology has been consulted for possible TRISTIN. MMODL / IJN: [id number] /
[2021-03-28 17:22] LABS: Glucose,Whole Blood 247 mg/dL (75-99)
[2021-03-28] MEDS: INSULIN ASPART (NovoLOG) 100 UNIT/ML VIAL SQ SCH ×2 (17:38→20:47)
[2021-03-28 19:07] VITALS: RESP 16
[2021-03-28] MEDS: THIAMINE 100 MG TAB PO SCH (19:13)
[2021-03-28 20:09] LABS: Glucose,Whole Blood 179 mg/dL (75-99)
[2021-03-28] MEDS ORDERED: ATORVASTATIN 40 MG TAB PO SCH (21:00)
[2021-03-29] MEDS: HEPARIN SODIUM,PORCINE/PF 5,000 UNIT/0.5 ML SYRINGE SQ SCH ×2 (00:54→08:33)
[2021-03-29 05:07] VITALS: BP 161/93; PULSE 60; TEMP 98.3
[2021-03-29 07:48] LABS: Basophils % (A) 1 %; Eosinophils # (A) 0.5 k/uL (0-0.7); Eosinophils % (A) 10 %; HCT 42.8 % (39.0-53.0); HGB 14.2 gm/dL (13.0-17.5); Lymphocytes % (A) 19 %; MCH 31.3 pg (25.0-35.0); MCHC 33.2 g/dL (31.0-37.0); MCV 94.3 fL (80.0-100.0); Mean Platelet Volume 8.5; Monocytes # (A) 0.4 k/uL (0-1.0); Monocytes % (A) 8 %; Neutrophils # (A) 3.2 k/uL (1.3-7.7); Neutrophils % (A) 61 %; Platelet Count 278 k/uL (150-450); RBC 4.54 m/uL (4.30-5.90); RDW 14.9 % (11.5-15.5); WBC 5.2 k/uL (3.8-10.6)
[2021-03-29 07:54] LABS: Glucose,Whole Blood 258 mg/dL (75-99)
--- NOTE | 2021-03-29 08:29 | ECHOF ---
Referral Reason:stroke MEASUREMENTS -------- HEIGHT: 172.7 cm WEIGHT: 56.7 kg BP: IVSd: 1.3 cm (0.6 - 1.1) LVIDd: 2.7 cm (3.9 - 5.3) LVPWd: 1.1 cm (0.6 - 1.1) IVSs: 1.4 cm LVIDs: 1.3 cm LVPWs: 2.0 cm Ao Diam: 3.7 cm (2.0 - 3.7) AV Cusp: 1.9 cm (1.5 - 2.6) LA Diam: 3.0 cm (2.7 - 3.8) MV EXCURSION: 15.856 mm (> 18.000) MV EF SLOPE: 65 mm/s (70 - 150) EPSS: 3.9 cm MV E Jarred: 0.62 m/s MV DecT: 230 ms MV A Jarred: 0.64 m/s MV E/A Ratio: 0.97 RAP: 5.00 mmHg RVSP: 8.37 mmHg FINDINGS -------- This was a technically good study. The left ventricular size is normal. There is mild concentric left ventricular hypertrophy. Overa ll left ventricular systolic function is normal with, an EF between 55 - 60 %. The right ventricle is normal in size. The left atrial size is normal. The right atrial size is normal. Interatrial and interventricular septum intact. The aortic valve is trileaflet and appears structurally normal. The mitral valve is normal. There is trace mitral regurgitation. The tricuspid valve appears structurally normal. Trace tricuspid regurgitation present. Right carlos tricular systolic pressure is normal at < 35 mmHg. There is no pulmonic regurgitation present. The aortic root size is normal. Normal inferior vena cava with normal inspiratory collapse consistent with estimated right atrial pre ssure of 5 mmHg. There is a trivial pericardial effusion present. CONCLUSIONS -------- 1. The left ventricular size is normal. 2. There is mild concentric left ventricular hypertrophy. 3. Overall left ventricular systolic function is normal with, an EF between 55 - 60 %. 4. There is trace mitral regurgitation. 5. Trace tricuspid regurgitation present. 6. There is a trivial pericardial effusion present. HORSE IDENTIFIER: Jess Crook RDCS
[2021-03-29] MEDS: INSULIN ASPART (NovoLOG) 100 UNIT/ML VIAL SQ SCH ×2 (08:32→13:03)
[2021-03-29] MEDS: THIAMINE 100 MG TAB PO SCH (08:33)
[2021-03-29] MEDS: ASPIRIN 81 MG PO SCH (08:33)
--- NOTE | 2021-03-29 09:40 | P.PN ---
Subjective Progress Note Date: 03/29/21 Upon seeing the patient he states that he's doing well and the he denies of any neurological deficits at. There is no further seizures in the hospital. Per the patient nurse his does not feel comfortable him going home because she feels the he somewhat confused. Objective - Vital Signs Vital signs: Vital Signs Temp 98.3 F 03/29/21 05:00 Pulse 60 03/29/21 05:00 Resp 16 03/29/21 05:00 BP 161/93 03/29/21 05:00 Pulse Ox 100 03/29/21 05:00 Intake & Output 03/28/21 03/29/21 03/29/21 18:59 06:59 18:59 Intake Total 950 1180 Balance 950 1180 Intake: Intake, IV Titration 950 Amount Magnesium Sulfate-D5w Pmx 200 1 gm In Dextrose/Water 1 100ml.bag @ 100 mls/hr IVPB Q1H JOHN Rx#: [id number] Sodium Chloride 0.9% 1, 750 000 ml @ 75 mls/hr IV . [id number] ONE Rx#:[id number] Oral 1180 Other: Voiding Method Toilet # Voids 1 - Exam GENERAL: The patient is lying in bed and is not in acute distress. HENT: Has bruise over the midfrontal region. NEUROLOGICAL: Somewhat limited since received 2mg of Ativan. Higher mental function: The patient is awake, alert, oriented to self, place and time. He is able to name objects (watch and pen). Patient seems somewhat slow in responding and commands had to be repeated to him. He correctly stated the current state we are in. Patient is following commands. No aphasia and no neglect. Cranial nerves: The pupils are round, equal and reactive to light. Visual coreas are full to confrontation throughout. Extraocular movement is intact no nystagmus is noted. Facial sensation is normal to touch throughout. The facial strength is normal throughout. Tongue is midline and moved [id number] without any difficulty. No tongue bite is noted. No dysarthria is noted. Shoulder shrug is normal bilaterally. Motor: Gait is normal with normal arm swings. The strength is 5 over 5 throughout. Normal tone and bulk. Cerebellum: Normal finger to nose bilaterally. Sensation: Sensation is normal to touch throughout. Reflexes (right/left): 2+ throughout uppers excepts biceps are 1+. Patellar are 3+ bilaterally and ankles are 1+. Plantars are mute bilaterally. WORK-UP: Hemoglobin A1c 6.9. AST of 23 ALT of 14. CRP is 0.5. ESR is 2 which is within normal limits Routine EEG is normal. There are no focal slowing, epileptiform discharges or seizure on the EEG. MRI Brain: Scattered small diffusion hyperintensities occluding. Ventricular white matter bilaterally and the right frontal lobe compatible with acute ischemic type change s. Additional chronic appearing periventricular white matter ischemic type changes. Diffusion increased signal inferior right cerebellar may have some enhancement. Subacute ischemic change favoring. Mass is felt to be less likely, follow-up can be performed as quickly indicated. Carotid duplex is reported as there is antegrade flow in the vertebral arteries. Images and measurements suggest less than 20% stenosis in both internal carotid arteries. 2-D echo was reported as left ventricular size is normal. Mild concentric left ventricle hypertrophy. Ejection fraction of 55-60%. In the body of the reported as mentioned left atrial size is normal, interatrial and interventricular septum is intact. - Labs CBC & Chem 7: 03/29/21 07:14 03/28/21 05:18 Labs: Abnormal Lab Results - Last 24 Hours (Table) 03/28/21 03/28/21 03/28/21 Range/Units 05:18 12:24 17:20 Sodium 135 L (137-145) mmol/L Chloride 110 H (98-107) mmol/L Carbon Dioxide 20 L (22-30) mmol/L Glucose 114 H (74-99) mg/dL POC Glucose (mg/dL) 259 H 247 H (75-99) mg/dL Total Bilirubin <0.1 L (0.2-1.3) mg/dL Total Protein 5.5 L (6.3-8.2) g/dL Albumin 3.1 L (3.5-5.0) g/dL 03/28/21 03/29/21 Range/Units 20:08 07:53 Sodium (137-145) mmol/L Chloride (98-107) mmol/L Carbon Dioxide (22-30) mmol/L Glucose (74-99) mg/dL POC Glucose (mg/dL) 179 H 258 H (75-99) mg/dL Total Bilirubin (0.2-1.3) mg/dL Total Protein (6.3-8.2) g/dL Albumin (3.5-5.0) g/dL Assessment and Plan Assessment: * New onset seizure: Seems provoked from hypoglycemia (was hypoglycemic at home was 44 and in our facility was in 40's). Cocaine can also provoke seizures. (UDS was positive for cocaine). * Right frontal and scattered small diffusion over periventricular region bilaterally and right frontal lobe (Per MRI Brain) suggestive of old stroke. Seems embolic. Rule out cardioemolic. Another possibility is cocaine can cause vasoconstriction leading stroke. Patient has no focal deficits. * Right cerebellum diffusion seems subacute ischemic * Episode of hypoglycemia (with sugar as low as 42). Current HbA1c: 6.9 * Polysubstance use (UDS was positive for cocaine, opiate and benzo (of note, he was he was given benzo in the ED)) * Diabetes mellitus (Sugar seems brittle, had hypoglycemia today as well episodes of hypoglycemia about 3 months ago). * Hypertension Plan: * Continue aspirin 81mg daily (not dual antiplatelet because of his episodes of fall which increases risk of a bleed). Continue Lipitor 40 mg daily at bedtime for secondary stroke prophylaxis. * Patient wants to hold off antiepileptic drug for now. He was notified if he has any further seizure he needs to be placed on antiepileptic drug. * On seizure precaution and the pads. * Ordered lipid panel , TSH level. * Every 4 hours neuro checks. * PT, OT are consulted * Fall risk precaution. * Consulted cardiology team for transesophageal echocardiogram to rule out cardio-emobli regarding stroke. * Placed patient on Thiamine 100mg daily. * Please avoid any hypoglycemia will defer the management to the primary team. * We'll defer the rest of medical management to primary team. * Patient was counseled on station of his cocaine use as well as opiate. * Upon discharge the patient needs to follow-up with a neurologist as an outpatient with 1-2 weeks. * Regarding the patient episode of procedure he was notified that per [place] DMV he is to avoid driving for 6 month until Z seizure-free. He is to avoid the swimming unassisted, using heavy machinery and avoid heights until seizure-free. Patient stated he would like to leave home and get the rest of work-up as outpatient. The plan is discussed with the patient and his nurse. Vikash Bryant M.D. Neuro-hospitalist Time with Patient: Less than 30
[2021-03-29 12:54] LABS: Glucose,Whole Blood 325 mg/dL (75-99)
--- NOTE | 2021-03-29 15:58 | DS ---
DISCHARGE SUMMARY DATE OF SERVICE: 03/29/2021 FINAL DIAGNOSES: 1. Generalized tonic-clonic seizures, possible hypoglycemia and multifactorial. 2. Possibly ischemic cerebrovascular disease. 3. Positive cocaine, benzodiazepines and opiates in the urine screen. 4. Decreased CO2. 5. Change in mental status, acute metabolic encephalopathy secondary to seizures. 6. History of alcohol dependence. 7. Mild protein calorie malnutrition with body mass index 19. 8. Mild hyponatremia. 9. Anemia. DISCHARGE DISPOSITION: The patient will be discharged in stable condition with guarded prognosis. HISTORY OF PRESENT ILLNESS: This 60-year-old gentleman with a past medical history of multiple medical problems being followed by Dr. Jack in the outpatient setting was admitted with seizure disorder. The patient had some hypoglycemia and cocaine was positive in the drug screen. The MRI showed possibly some ischemic changes. Neurology saw the patient, recommend outpatient followup. Aspirin was recommended at this time. A 2D echo was done. Recommend cardiology outpatient followup. On exam, vitals stable. Cardiovascular S1, S2. Abdomen soft. Nervous system: No focal deficits. DISCHARGE ADVICE AND MEDICATIONS: 1. Diet is cardiac diet. 2. Activity limited until followup. 3. Follow up with Dr. Jack as advised. 4. Follow up with Dr. Gonzalez. 5. Follow up with Cardiology as recommended. 6. Ecotrin 81 mg daily. 7. Lantus 10 units subcu q.h.s. reduced dose. Hold if the Accu-Cheks less than 120. 8. Lipitor 40 mg q.h.s. 9. Thiamine 100 mg p.o. daily. 10.No drugs. MMODL / IJN: [id number] /
[2021-03-29 18:25] LABS: Chol/HDL Ratio 3.97; LDL Cholesterol,Calculated 93.2 mg/dL (0.0-131.0); VLDL Calculation 13.8 mg/dL (5.00-40.00)
== END 2021-03-29 14:38 | disposition home or self-care (01) ==
LOC: EC 12:15 → INTOOBSV 15:09 → 5NMEDONC 15:09 → UNDODISIN 03-29 14:38
PROVIDERS: ADMIT Hospitalist; ATTEND Hospitalist
DX: G40.909 Epilepsy, unspecified, not intractable, without status epilepticus (principal); E11.649 Type 2 diabetes mellitus with hypoglycemia without coma; G92 Toxic encephalopathy; G93.41 Metabolic encephalopathy; E44.1 Mild protein-calorie malnutrition; I11.9 Hypertensive heart disease without heart failure; E87.1 Hypo-osmolality and hyponatremia; S06.0X9A Concussion with loss of consciousness of unspecified duration, initial encounter; S01.83XA Puncture wound without foreign body of other part of head, initial encounter; F14.90 Cocaine use, unspecified, uncomplicated; F11.90 Opioid use, unspecified, uncomplicated; F10.20 Alcohol dependence, uncomplicated; M47.812 Spondylosis without myelopathy or radiculopathy, cervical region; D64.9 Anemia, unspecified; Z68.1 Body mass index [BMI] 19.9 or less, adult; Z23 Encounter for immunization; W19.XXXA Unspecified fall, initial encounter; Y92.009 Unspecified place in unspecified non-institutional (private) residence as the place of occurrence of the external cause; Z79.4 Long term (current) use of insulin; Z87.891 Personal history of nicotine dependence; Z82.49 Family history of ischemic heart disease and other diseases of the circulatory system
CPT/HCPCS: 96361 ×3; 96365; 96366; 96372 ×3; 90471; 96375; 99285; 36415; 95816; 93005; 93306; 97162; 97166; 80061; 80053 ×2; 85652; 83735 ×2; 85025 ×3; 86140; 81003; 87040; 80306; 83036; 87635; 71045; 71046; 93880; 72125; 70450; 70553; 90715; G0378 ×3; J2060; J0360; J3475; J1644 ×3; A9585; 96374

== ENCOUNTER 2021-04-18 14:14 | Emergency (ER) | payer OTHER ==
[2021-04-18 14:24] VITALS: TEMP 97.3
[2021-04-18] MEDS ORDERED: SODIUM CHLORIDE 0.9% 500 ML 500 ML IV STA ×2 (15:30→17:26)
--- NOTE | 2021-04-18 15:31 | ED ---
General Adult HPI - General Chief complaint: Nausea/Vomiting/Diarrhea Stated complaint: weakness Time Seen by Provider: 04/18/21 15:03 Source: patient, EMS Mode of arrival: EMS Limitations: no limitations - History of Present Illness Initial comments: 61-year-old male past medical history of type 2 diabetes who presents emergency department with nausea and vomiting for the past day. Patient reports that he took his medications this morning and shortly afterwards began having vomiting. The normally takes his medications on a full stomach however states he did not do this is morning he thinks he irritated his stomach. He was unable to hold down any food or drink. States that he began feeling weak and therefore called an ambulance. En route to the hospital to give him a 500 bolus of normal saline followed by 4 mg of Zofran. He reports that his symptoms are completely resolved at this time. Denies ever having any abdominal pain. No contact obtain includes. No significant headaches with similar symptoms. He denies any chest pain or shortness of breath. He did not attempt to take any medications at home for her symptoms. No other alleviating, precipitating or modifying factors - Related Data Home Medications Medication Instructions Recorded Confirmed Hydrocortisone Cream 1 applic TOPICAL BID PRN 04/18/21 04/18/21 [Hydrocortisone 2.5% Cream] Lisinopril [Prinivil] 10 mg PO DAILY 04/18/21 04/18/21 diphenhydrAMINE [Benadryl] 50 mg PO QID PRN 04/18/21 04/18/21 hydrOXYzine pamoate [Vistaril] 25 mg PO TID PRN 04/18/21 04/18/21 Previous Rx's Medication Instructions Recorded Atorvastatin [Lipitor] 40 mg PO HS #30 tab 03/29/21 Insulin Glargine,Hum.rec.anlog 10 unit SQ HS #0 03/29/21 [Lantus Solostar Pen] Thiamine [Vitamin B-1] 100 mg PO DAILY #30 tab 03/29/21 Allergies Allergy/AdvReac Type Severity Reaction Status Date / Time No Known Allergies Allergy Verified 03/27/21 15:40 Review of Systems ROS Statement: Those systems with pertinent positive or pertinent negative responses have been documented in the HPI. ROS Other: All systems not noted in ROS Statement are negative. Past Medical History Past Medical History: Diabetes Mellitus Additional Past Medical History / Comment(s): Type 2 DM History of Any Multi-Drug Resistant Organisms: None Reported Past Surgical History: No Surgical Hx Reported Past Anesthesia/Blood Transfusion Reactions: No Reported Reaction Past Psychological History: No Psychological Hx Reported Smoking Status: Current every day smoker Past Alcohol Use History: Occasional Past Drug Use History: None Reported - Past Family History Father Family Medical History: Hypertension Mother Family Medical History: Hypertension Sister(s) Family Medical History: No Reported History General Exam Limitations: no limitations General appearance: alert, in no apparent distress Head exam: Present: atraumatic, normocephalic, normal inspection Eye exam: Present: normal appearance, PERRL, EOMI. Absent: scleral icterus, conjunctival injection, periorbital swelling ENT exam: Present: normal exam, mucous membranes moist Neck exam: Present: normal inspection. Absent: tenderness, meningismus, lymphadenopathy Respiratory exam: Present: normal lung sounds bilaterally. Absent: respiratory distress, wheezes, rales, rhonchi, stridor Cardiovascular Exam: Present: regular rate, normal rhythm, normal heart sounds. Absent: systolic murmur, diastolic murmur, rubs, gallop, clicks GI/Abdominal exam: Present: soft, normal bowel sounds. Absent: distended, tenderness, guarding, rebound, rigid Extremities exam: Present: normal inspection, full ROM, normal capillary refill. Absent: tenderness, pedal edema, joint swelling, calf tenderness Back exam: Present: normal inspection Neurological exam: Present: alert, oriented X3, CN II-XII intact Psychiatric exam: Present: normal affect, normal mood Skin exam: Present: warm, dry, intact, normal color. Absent: rash Course Vital Signs 04/18/21 04/18/21 14:18 17:29 Temperature 97.3 F L Pulse Rate 82 86 Respiratory 18 16 Rate Blood Pressure 138/102 135/104 O2 Sat by Pulse 99 100 Oximetry Medical Decision Making - Medical Decision Making Upon arrival patient is placed in room 28. A thorough history and physical exam is performed. Laboratory studies are conducted. Patient was given a liter bolus of normal saline. Laboratory studies are reviewed. Glucose 265. No anion gap. Lactic acid 2.8. Patient is reevaluated and reports marked improvement in his symptoms at this time and would like to go home. I did discu ss diagnosis, differential treatment options. Patient will be discharged home and is. His primary care doctor to 4 days. Return to the emergency room for any new or worsening symptoms. Patient was discharged condition - Lab Data Result diagrams: 04/18/21 15:46 04/18/21 15:46 Lab Results 04/18/21 04/18/21 04/18/21 Range/Units 15:46 15:46 15:46 WBC 7.7 (3.8-10.6) k/uL RBC 5.28 (4.30-5.90) m/uL Hgb 16.1 (13.0-17.5) gm/dL Hct 49.6 (39.0-53.0) % MCV 93.9 (80.0-100.0) fL MCH 30.6 (25.0-35.0) pg MCHC 32.6 (31.0-37.0) g/dL RDW 14.4 (11.5-15.5) % Plt Count 318 (150-450) k/uL MPV 10.1 Neutrophils % 73 % Lymphocytes % 16 % Monocytes % 8 % Eosinophils % 1 % Basophils % 0 % Neutrophils # 5.6 (1.3-7.7) k/uL Lymphocytes # 1.3 (1.0-4.8) k/uL Monocytes # 0.6 (0-1.0) k/uL Eosinophils # 0.1 (0-0.7) k/uL Basophils # 0.0 (0-0.2) k/uL Sodium 136 L (137-145) mmol/L Potassium 4.4 (3.5-5.1) mmol/L Chloride 99 (98-107) mmol/L Carbon Dioxide 24 (22-30) mmol/L Anion Gap 13 mmol/L BUN 48 H (9-20) mg/dL Creatinine 1.15 (0.66-1.25) mg/dL Est GFR (CKD-EPI)AfAm 81 (>60 ml/min/1.73 sqM) Est GFR (CKD-EPI)NonAf 70 (>60 ml/min/1.73 sqM) Glucose 265 H (74-99) mg/dL Lactic Ac Sepsis Rflx Plasma Lactic Acid Jordon (0.7-2.0) mmol/L Calcium 10.1 (8.4-10.2) mg/dL Total Bilirubin 0.6 (0.2-1.3) mg/dL AST 20 (17-59) U/L ALT 15 (4-49) U/L Alkaline Phosphatase 125 (38-126) U/L Troponin I (0.000-0.034) ng/mL Total Protein 7.2 (6.3-8.2) g/dL Albumin 4.2 (3.5-5.0) g/dL Lipase 26 (23-300) U/L Urine Color Yellow Urine Appearance Cloudy (Clear) Urine pH 5.5 (5.0-8.0) Ur Specific [place] 1.027 (1.001-1.035) Urine Protein 2+ H (Negative) Urine Glucose (UA) 4+ H (Negative) Urine Ketones Trace H (Negative) Urine Blood Negative (Negative) Urine Nitrite Negative (Negative) Urine Bilirubin Negative (Negative) Urine Urobilinogen <2.0 (<2.0) mg/dL Ur Leukocyte Esterase Negative (Negative) Urine RBC 1 (0-5) /hpf Urine WBC 5 (0-5) /hpf Ur Squamous Epith Cells 1 (0-4) /hpf Hyaline Casts 19 H (0-2) /lpf Urine Mucus Many H (None) /hpf 04/18/21 04/18/21 04/18/21 Range/Units 15:46 15:46 16:32 WBC (3.8-10.6) k/uL RBC (4.30-5.90) m/uL Hgb (13.0-17.5) gm/dL Hct (39.0-53.0) % MCV (80.0-100.0) fL MCH (25.0-35.0) pg MCHC (31.0-37.0) g/dL RDW (11.5-15.5) % Plt Count (150-450) k/uL MPV Neutrophils % % Lymphocytes % % Monocytes % % Eosinophils % % Basophils % % Neutrophils # (1.3-7.7) k/uL Lymphocytes # (1.0-4.8) k/uL Monocytes # (0-1.0) k/uL Eosinophils # (0-0.7) k/uL Basophils # (0-0.2) k/uL Sodium (137-145) mmol/L Potassium (3.5-5.1) mmol/L Chloride (98-107) mmol/L Carbon Dioxide (22-30) mmol/L Anion Gap mmol/L BUN (9-20) mg/dL Creatinine (0.66-1.25) mg/dL Est GFR (CKD-EPI)AfAm (>60 ml/min/1.73 sqM) Est GFR (CKD-EPI)NonAf (>60 ml/min/1.73 sqM) Glucose (74-99) mg/dL Lactic Ac Sepsis Rflx Y Plasma Lactic Acid Jordon 2.8 H* (0.7-2.0) mmol/L Calcium (8.4-10.2) mg/dL Total Bilirubin (0.2-1.3) mg/dL AST (17-59) U/L ALT (4-49) U/L Alkaline Phosphatase (38-126) U/L Troponin I 0.015 (0.000-0.034) ng/mL Total Protein (6.3-8.2) g/dL Albumin (3.5-5.0) g/dL Lipase (23-300) U/L Urine Color Urine Appearance (Clear) Urine pH (5.0-8.0) Ur Specific [place] (1.001-1.035) Urine Protein (Negative) Urine Glucose (UA) (Negative) Urine Ketones (Negative) Urine Blood (Negative) Urine Nitrite (Negative) Urine Bilirubin (Negative) Urine Urobilinogen (<2.0) mg/dL Ur Leukocyte Esterase (Negative) Urine RBC (0-5) /hpf Urine WBC (0-5) /hpf Ur Squamous Epith Cells (0-4) /hpf Hyaline Casts (0-2) /lpf Urine Mucus (None) /hpf Disposition Clinical Impression: Nausea and vomiting, Lactic acidosis Disposition: HOME SELF-CARE Condition: Stable Instructions (If sedation given, give patient instructions): Acute Nausea and Vomiting (ED) Additional Instructions: Please follow up with your primary care doctor in 2-4 days. Return to the emergency room for any new or worsening symptoms Is patient prescribed a controlled substance at d/c from ED?: No Referrals: Alphonso Jack MD [Primary Care Provider] - 1-2 days Time of Disposition: 17:44
[2021-04-18 16:03] LABS: Basophils % (A) 0 %; Eosinophils # (A) 0.1 k/uL (0-0.7); Eosinophils % (A) 1 %; HCT 49.6 % (39.0-53.0); HGB 16.1 gm/dL (13.0-17.5); Lymphocytes # (A) 1.3 k/uL (1.0-4.8); Lymphocytes % (A) 16 %; MCH 30.6 pg (25.0-35.0); MCHC 32.6 g/dL (31.0-37.0); MCV 93.9 fL (80.0-100.0); Mean Platelet Volume 10.1; Monocytes # (A) 0.6 k/uL (0-1.0); Monocytes % (A) 8 %; Neutrophils # (A) 5.6 k/uL (1.3-7.7); Neutrophils % (A) 73 %; Platelet Count 318 k/uL (150-450); RBC 5.28 m/uL (4.30-5.90); RDW 14.4 % (11.5-15.5); WBC 7.7 k/uL (3.8-10.6)
[2021-04-18 16:13] LABS: Albumin 4.2 g/dL (3.5-5.0); Calcium 10.1 mg/dL (8.4-10.2); Potassium 4.4 mmol/L (3.5-5.1); Total Bilirubin 0.6 mg/dL (0.2-1.3); Total Protein 7.2 g/dL (6.3-8.2)
[2021-04-18 17:07] LABS: Appearance,Urine Cloudy (Clear); Bilirubin,Urine Negative (Negative); Blood,Urine Negative (Negative); Color,Urine Yellow; Glucose,Urine (UA) 4+ (Negative); Hyaline Casts,Urine 19 /lpf (0-2); Ketones,Urine Trace (Negative); Leukocyte Esterase,Urine Negative (Negative); Mucus,Urine Many /hpf; Nitrite,Urine Negative (Negative); PH, Urine 5.5 (5.0-8.0); Protein,Urine 2+ (Negative); RBC,Urine 1 /hpf (0-5); Specific Gravity,Urine 1.027 (1.001-1.035); Squamous Epithelial Cell,Urine 1 /hpf (0-4); Urobilinogen,Urine <2.0 mg/dL (<2.0); WBC,Urine 5 /hpf (0-5)
[2021-04-18 17:30] VITALS: BP 135/104; PULSE 86; RESP 16
[2021-04-18] MEDS ORDERED: ONDANSETRON 4 MG ODT STARTER PACK 2 TAB BTL PO STA (17:44)
== END 2021-04-18 18:09 | disposition home or self-care (01) ==
LOC: EC 14:14
DX: E87.2 Acidosis (principal); R53.1 Weakness; E11.9 Type 2 diabetes mellitus without complications; F17.200 Nicotine dependence, unspecified, uncomplicated
CPT/HCPCS: 36415; 80053; 83605; 83690; 84484; 85025; 81001; 99285; 96360; S0119

== ENCOUNTER 2021-05-19 09:05 | Inpatient (IN) | payer OTHER ==
--- NOTE | 2021-05-19 11:22 | ED ---
Weakness HPI - General Source: patient, family, RN notes reviewed, old records reviewed Mode of arrival: wheelchair Limitations: no limitations <Ramonita Abraham - Last Filed: 05/19/21 11:19> <Reji Arnold - Last Filed: 05/19/21 21:52> - General Chief complaint: Weakness Stated complaint: Vomiting, weakness Time Seen by Provider: 05/19/21 11:19 - History of Present Illness Initial comments: Patient is a 61-year-old male history of diabetes, presenting to emergency Department complaining of generalized weakness. He's been having episodes of nausea and vomiting that last for a couple days and then improves. Patient states he has been loosing weight over the past few months, cannot stand without assistance. He denies any pain at this time, no chest pain or shortness of breath. No abdominal pain. No recent feves, chills. No cough congestion. (Ramonita Abraham) Patient is a 61-year-old male with past medical history remarkable for 50 diabetes, hypertension who presents emergency Department complaining of nausea and vomiting. Patient has been having weight loss as well as intermittent nausea and vomiting since his last admission here multiple months ago. He states he feels weak. He denies any abdominal pain, chest pain, shortness of breath. Denies any headaches. His no other acute complaint at this time. He seems somewhat tired at this time. He states he feels dehydrated. History is also obtained from family. Patient is overall a poor historian. I evaluated the patient once he was placed in a room. (Reji Arnold) - Related Data Home Medications Medication Instructions Recorded Confirmed Hydrocortisone Cream 1 applic TOPICAL BID PRN 04/18/21 05/19/21 [Hydrocortisone 2.5% Cream] diphenhydrAMINE [Benadryl] 50 mg PO QID PRN 04/18/21 05/19/21 Famotidine 40 mg PO DAILY 05/19/21 05/19/21 Omeprazole 20 mg PO DAILY 05/19/21 05/19/21 Ozempic 2mg/1.5ml 0.5 mg SQ Q7D 05/19/21 05/19/21 lisinopriL 40 mg PO DAILY 05/19/21 05/19/21 Previous Rx's Medication Instructions Recorded Atorvastatin [Lipitor] 40 mg PO HS #30 tab 03/29/21 Thiamine [Vitamin B-1] 100 mg PO DAILY #30 tab 03/29/21 Allergies Allergy/AdvReac Type Severity Reaction Status Date / Time No Known Allergies Allergy Verified 05/19/21 16:44 Review of Systems ROS Other: All systems not noted in ROS Statement are negative. <Ramonita Abraham - Last Filed: 05/19/21 11:19> ROS Other: All systems not noted in ROS Statement are negative. <Reji Arnold - Last Filed: 05/19/21 21:52> ROS Statement: Those systems with pertinent positive or pertinent negative responses have been documented in the HPI. Review of Systems: CONST: Endorses generalized fatigue to somewhat chronic. EYES: Denies blurry vision ENT: Denies nasal congestion C/V: Denies Chest pain RESP: Denies shortness of breath GI: Denies abdominal pain : Denies dysuria SKIN: Denies rash. MSK: Denies joint pain. NEURO: Denies headache (Reji Arnold) Past Medical History Past Medical History: Diabetes Mellitus Additional Past Medical History / Comment(s): Type 2 DM History of Any Multi-Drug Resistant Organisms: None Reported Past Surgical History: No Surgical Hx Reported Past Anesthesia/Blood Transfusion Reactions: No Reported Reaction Past Psychological History: No Psychological Hx Reported Smoking Status: Current every day smoker Past Alcohol Use History: Occasional Past Drug Use History: None Reported - Past Family History Father Family Medical History: Hypertension Mother Family Medical History: Hypertension Sister(s) Family Medical History: No Reported History <Ramonita Abraham - Last Filed: 05/19/21 11:19> General Exam Limitations: no limitations General appearance: alert, in no apparent distress Head exam: Present: atraumatic Eye exam: Present: normal appearance <Ramonita Abraham - Last Filed: 05/19/21 11:19> <Reji Arnold - Last Filed: 05/19/21 21:52> - General Exam Comments Initial Comments: General: Appears cachectic and dehydrated. HEAD: Normal with no signs of head trauma. EYES: PERRLA, EOMI, conjunctiva normal, no discharge. ENT: Hearing grossly intact, normal oropharynx. RESPIRATORY: Clear breath sounds bilaterally. No wheezes, rales, or rhonchi. C/V: Regular rate and rhythm. S1 and S2 auscultated, no edema, peripheral pulses 2+ and intact throughout ABD: Abd is soft, nontender, nondistended EXT: Normal range of motion, no obvious deformity SKIN: No rashes or lesions observed on exposed skin. NEURO: Alert and oriented 4. At baseline Mental status per family.Patient is weak. (Reji Arnold) Course Vital Signs 05/19/21 05/19/21 05/19/21 11:28 16:15 18:33 Temperature 98 F Pulse Rate 88 89 59 L Pulse Rate [ Pulse Oximetery ] Respiratory 18 18 18 Rate Blood Pressure 88/61 104/73 138/85 Blood Pressure [Left Arm] O2 Sat by Pulse 99 92 L 98 Oximetry 05/19/21 19:39 Temperature Pulse Rate Pulse Rate [ 78 Pulse Oximetery ] Respiratory 22 Rate Blood Pressure Blood Pressure 108/69 [Left Arm] O2 Sat by Pulse 97 Oximetry Medical Decision Making - Lab Data Result diagrams: 05/19/21 13:00 05/19/21 18:12 - EKG Data -: EKG Interpreted by Me <Reji Arnold - Last Filed: 05/19/21 21:52> - Medical Decision Making Based on the patient's presentation and physical exam, I'm concerned for DKA versus HHS versus infectious etiology for his current symptoms. Laboratory studies were already drawn in triage and it does appear that the patient is in DKA. Patient is a mild hyperkalemia 5.5 with no signs of EKG changes from hyperkalemia. Patient has an elevated be 1 of 87 and creatinine of 2.24, and an AK eye. Patient is hyperglycemic to 961. Lactic acid is elevated to 2.2. Patient has a slightly decreased bicarb of 22 with an anion gap of 20. Troponin was drawn and was found to be elevated 0.044 which is likely secondary to dehydration. He is positive for acetone. Urine is positive for 4+ glucose. His Covid negative. Chest x-ray showed no acute cardio primary process. EKG showed no signs of acute ischemia. As the patient is apparently in DKA, we will start him on the appropriate pathway, as he will be started on insulin drip, as well as multiple fluid boluses. I discussed this with the patient's family and they were in agreement with the plan. I suspect poor medication compliance for his current symptoms. Patient is an elevated troponin from by triage workup, and it discussed with on- call cardiology who agreed it is likely secondary to dehydration we will continue to monitor and trend the troponin to ensure it downtrend's. Has no chest pain or signs of ACS. Patient will be admitted to the hospital. I spoke with his physician, Dr. Jack who was in agreement to admission. He requested that I add on amylase and lipase labs which I did. There is a pending at this time. Patient was therefore admitted to a telemetry bed in serious condition. After admission, there Was concern for some mild altered mental status the patient is he was somewhat less responsive to nursing staff. CT head was therefore obtained. He was negative for any acute process. Following CT, patient was back to his baseline he was upon arrival. (Reji Arnold) - Lab Data Lab Results 05/19/21 05/19/21 05/19/21 Range/Units 13:00 13:00 13:00 WBC 9.9 (3.8-10.6) k/uL RBC 4.91 (4.30-5.90) m/uL Hgb 14.7 (13.0-17.5) gm/dL Hct 47.5 (39.0-53.0) % MCV 96.9 (80.0-100.0) fL MCH 29.9 (25.0-35.0) pg MCHC 30.8 L (31.0-37.0) g/dL RDW 14.1 (11.5-15.5) % Plt Count 238 (150-450) k/uL MPV 9.9 Neutrophils % 90 % Lymphocytes % 6 % Monocytes % 3 % Eosinophils % 0 % Basophils % 0 % Neutrophils # 8.9 H (1.3-7.7) k/uL Lymphocytes # 0.6 L (1.0-4.8) k/uL Monocytes # 0.3 (0-1.0) k/uL Eosinophils # 0.0 (0-0.7) k/uL Basophils # 0.0 (0-0.2) k/uL PT 11.7 (9.0-12.0) sec INR 1.1 (<1.2) APTT 24.6 (22.0-30.0) sec Sodium 139 (137-145) mmol/L Potassium 5.5 H (3.5-5.1) mmol/L Chloride 97 L (98-107) mmol/L Carbon Dioxide 22 (22-30) mmol/L Anion Gap 20 mmol/L BUN 87 H (9-20) mg/dL Creatinine 2.24 H (0.66-1.25) mg/dL Est GFR (CKD-EPI)AfAm 36 (>60 ml/min/1.73 sqM) Est GFR (CKD-EPI)NonAf 31 (>60 ml/min/1.73 sqM) Glucose 961 H* (74-99) mg/dL POC Glucose (mg/dL) (75-99) mg/dL POC Glu Academic Coordinator ID Lactic Ac Sepsis Rflx Plasma Lactic Acid Jordon (0.7-2.0) mmol/L Calcium 9.9 (8.4-10.2) mg/dL Phosphorus 7.7 H (2.5-4.5) mg/dL Magnesium 3.0 H (1.6-2.3) mg/dL Total Bilirubin 0.5 (0.2-1.3) mg/dL AST 28 (17-59) U/L ALT 42 (4-49) U/L Alkaline Phosphatase 160 H (38-126) U/L Troponin I (0.000-0.034) ng/mL Total Protein 6.6 (6.3-8.2) g/dL Albumin 3.8 (3.5-5.0) g/dL Urine Color Urine Appearance (Clear) Urine pH (5.0-8.0) Ur Specific [place] (1.001-1.035) Urine Protein (Negative) Urine Glucose (UA) (Negative) Urine Ketones (Negative) Urine Blood (Negative) Urine Nitrite (Negative) Urine Bilirubin (Negative) Urine Urobilinogen (<2.0) mg/dL Ur Leukocyte Esterase (Negative) Acetone, Qual Positive (Negative) Coronavirus (PCR) (Not Detectd) 05/19/21 05/19/21 05/19/21 Range/Units 13:00 13:00 13:08 WBC (3.8-10.6) k/uL RBC (4.30-5.90) m/uL Hgb (13.0-17.5) gm/dL Hct (39.0-53.0) % MCV (80.0-100.0) fL MCH (25.0-35.0) pg MCHC (31.0-37.0) g/dL RDW (11.5-15.5) % Plt Count (150-450) k/uL MPV Neutrophils % % Lymphocytes % % Monocytes % % Eosinophils % % Basophils % % Neutrophils # (1.3-7.7) k/uL Lymphocytes # (1.0-4.8) k/uL Monocytes # (0-1.0) k/uL Eosinophils # (0-0.7) k/uL Basophils # (0-0.2) k/uL PT (9.0-12.0) sec INR (<1.2) APTT (22.0-30.0) sec Sodium (137-145) mmol/L Potassium (3.5-5.1) mmol/L Chloride (98-107) mmol/L Carbon Dioxide (22-30) mmol/L Anion Gap mmol/L BUN (9-20) mg/dL Creatinine (0.66-1.25) mg/dL Est GFR (CKD-EPI)AfAm (>60 ml/min/1.73 sqM) Est GFR (CKD-EPI)NonAf (>60 ml/min/1.73 sqM) Glucose (74-99) mg/dL POC Glucose (mg/dL) >600 H (75-99) mg/dL POC Glu Academic Coordinator ID [facility] Institute[facility] Lactic Ac Sepsis Rflx Plasma Lactic Acid Jordon 2.2 H* (0.7-2.0) mmol/L Calcium (8.4-10.2) mg/dL Phosphorus (2.5-4.5) mg/dL Magnesium (1.6-2.3) mg/dL Total Bilirubin (0.2-1.3) mg/dL AST (17-59) U/L ALT (4-49) U/L Alkaline Phosphatase (38-126) U/L Troponin I 0.044 H* (0.000-0.034) ng/mL Total Protein (6.3-8.2) g/dL Albumin (3.5-5.0) g/dL Urine Color Urine Appearance (Clear) Urine pH (5.0-8.0) Ur Specific [place] (1.001-1.035) Urine Protein (Negative) Urine Glucose (UA) (Negative) Urine Ketones (Negative) Urine Blood (Negative) Urine Nitrite (Negative) Urine Bilirubin (Negative) Urine Urobilinogen (<2.0) mg/dL Ur Leukocyte Esterase (Negative) Acetone, Qual (Negative) Coronavirus (PCR) (Not Detectd) 05/19/21 05/19/21 05/19/21 Range/Units 13:53 14:07 14:07 WBC (3.8-10.6) k/uL RBC (4.30-5.90) m/uL Hgb (13.0-17.5) gm/dL Hct (39.0-53.0) % MCV (80.0-100.0) fL MCH (25.0-35.0) pg MCHC (31.0-37.0) g/dL RDW (11.5-15.5) % Plt Count (150-450) k/uL MPV Neutrophils % % Lymphocytes % % Monocytes % % Eosinophils % % Basophils % % Neutrophils # (1.3-7.7) k/uL Lymphocytes # (1.0-4.8) k/uL Monocytes # (0-1.0) k/uL Eosinophils # (0-0.7) k/uL Basophils # (0-0.2) k/uL PT (9.0-12.0) sec INR (<1.2) APTT (22.0-30.0) sec Sodium (137-145) mmol/L Potassium (3.5-5.1) mmol/L Chloride (98-107) mmol/L Carbon Dioxide (22-30) mmol/L Anion Gap mmol/L BUN (9-20) mg/dL Creatinine (0.66-1.25) mg/dL Est GFR (CKD-EPI)AfAm (>60 ml/min/1.73 sqM) Est GFR (CKD-EPI)NonAf (>60 ml/min/1.73 sqM) Glucose (74-99) mg/dL POC Glucose (mg/dL) (75-99) mg/dL POC Glu Academic Coordinator ID Lactic Ac Sepsis Rflx Y Plasma Lactic Acid Jordon (0.7-2.0) mmol/L Calcium (8.4-10.2) mg/dL Phosphorus (2.5-4.5) mg/dL Magnesium (1.6-2.3) mg/dL Total Bilirubin (0.2-1.3) mg/dL AST (17-59) U/L ALT (4-49) U/L Alkaline Phosphatase (38-126) U/L Troponin I (0.000-0.034) ng/mL Total Protein (6.3-8.2) g/dL Albumin (3.5-5.0) g/dL Urine Color Light Yellow Urine Appearance Clear (Clear) Urine pH 5.0 (5.0-8.0) Ur Specific [place] 1.023 (1.001-1.035) Urine Protein Trace H (Negative) Urine Glucose (UA) 4+ H (Negative) Urine Ketones Trace H (Negative) Urine Blood Negative (Negative) Urine Nitrite Negative (Negative) Urine Bilirubin Negative (Negative) Urine Urobilinogen <2.0 (<2.0) mg/dL Ur Leukocyte Esterase Negative (Negative) Acetone, Qual (Negative) Coronavirus (PCR) Not Detected (Not Detectd) - EKG Data EKG Comments: 12-lead Electrocardiogram Interpretation Note EKG was reviewed and interpreted by myself. 12-lead ECG performed at 1141 is interpreted by me as revealing normal sinus rhythm at a rate of 94 beats per minute. [place] is normal. [place] interval is 134 ms, QRS duration is 82 ms, QTc is 470 ms.. There were no ST or T wave abnormalities to suggest myocardial ischemia or injury. R wave progression across the precordium was satisfactory. By my interpretation this EKG is non-diagnostic for acute ischemia. (Reji Arnold) Critical Care Time Critical Care Time: Yes Total Critical Care Time: 30 <Reji Arnold - Last Filed: 05/19/21 21:52> Critical Care Time: Upon my evaluation, this patient had a high probability of imminent or life- threatening deterioration due to DKA, which required my direct attention, intervention, and personal management. I have personally provided 30 minutes of critical care time exclusive of time spent on separately billable procedures. Time includes review of laboratory data, radiology results, discussion with consultants, and monitoring for potential decompensation. Interventions were performed as documented in my note. (Reji Arnold) Disposition <Ramonita Abraham - Last Filed: 05/19/21 11:19> <Reji Arnold - Last Filed: 05/19/21 21:52> Clinical Impression: DKA (diabetic ketoacidosis), Dehydration, Hyperkalemia, REILLY (acute kidney injury), Elevated troponin, Weakness Disposition: ADMITTED IP TO THIS HOSP Condition: Serious
[2021-05-19 13:11] LABS: Glucose,Whole Blood >600 mg/dL (75-99)
[2021-05-19 13:22] LABS: Basophils % (A) 0 %; Eosinophils % (A) 0 %; HCT 47.5 % (39.0-53.0); HGB 14.7 gm/dL (13.0-17.5); Lymphocytes # (A) 0.6 k/uL (1.0-4.8); Lymphocytes % (A) 6 %; MCH 29.9 pg (25.0-35.0); MCHC 30.8 g/dL (31.0-37.0); MCV 96.9 fL (80.0-100.0); Mean Platelet Volume 9.9; Monocytes # (A) 0.3 k/uL (0-1.0); Monocytes % (A) 3 %; Neutrophils # (A) 8.9 k/uL (1.3-7.7); Neutrophils % (A) 90 %; Platelet Count 238 k/uL (150-450); RBC 4.91 m/uL (4.30-5.90); RDW 14.1 % (11.5-15.5); WBC 9.9 k/uL (3.8-10.6)
[2021-05-19 13:36] LABS: INR 1.1 (<1.2); Partial Thromboplastin Time 24.6 sec (22.0-30.0); Prothrombin Time 11.7 sec (9.0-12.0)
[2021-05-19 13:39] LABS: ALT 42 U/L (4-49); AST 28 U/L (17-59); African American GFR (CKD) 36 (>60 ml/min/1.73 sqM); Albumin 3.8 g/dL (3.5-5.0); Alkaline Phosphatase 160 U/L (38-126); Anion Gap 20 mmol/L; Blood Urea Nitrogen 87 mg/dL (9-20); Calcium 9.9 mg/dL (8.4-10.2); Carbon Dioxide 22 mmol/L (22-30); Chloride 97 mmol/L (98-107); Non-African American GFR(CKD) 31 (>60 ml/min/1.73 sqM); Phosphorus 7.7 mg/dL (2.5-4.5); Potassium 5.5 mmol/L (3.5-5.1); Sodium 139 mmol/L (137-145); Total Bilirubin 0.5 mg/dL (0.2-1.3); Total Protein 6.6 g/dL (6.3-8.2)
[2021-05-19 13:54] LABS: Glucose 961 mg/dL (74-99)
[2021-05-19] MEDS ORDERED: Potassium Replacement Protocol 1 EACH MISC MISCELLANE PRN (13:55)
[2021-05-19] MEDS ORDERED: SODIUM CHLORIDE 0.9% 1,000 ML IV STA ×2 (13:55→13:58)
[2021-05-19] MEDS ORDERED: Magnesium Replacement Protocol 1 EACH MISC MISCELLANE PRN (13:55)
[2021-05-19 14:43] LABS: Appearance,Urine Clear (Clear); Bilirubin,Urine Negative (Negative); Blood,Urine Negative (Negative); Color,Urine Light Yellow; Glucose,Urine (UA) 4+ (Negative); Ketones,Urine Trace (Negative); Leukocyte Esterase,Urine Negative (Negative); Nitrite,Urine Negative (Negative); Protein,Urine Trace (Negative); Specific Gravity,Urine 1.023 (1.001-1.035); Urobilinogen,Urine <2.0 mg/dL (<2.0)
[2021-05-19] MEDS: SODIUM CHLORIDE 0.9% 1,000 ML IV SCH ×2 (15:11→20:48)
[2021-05-19] MEDS: INSULIN REGULAR 100 UNIT in SODIUM CHLORIDE 0.9% 100 ML IV SCH (15:13)
--- NOTE | 2021-05-19 15:25 | P.CRDCN ---
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 We have been asked to see in consultation for elevated troponin. Patient is seen and examined in the emergency department. Patient a poor historian, family at bedside. Patient presents to the emergency department with generalized weakness, nausea, vomiting, significant weight loss over the past year. Patient was found to have a blood sugar of 961. Patient occasionally misses doses of his insulin. He follows with Dr. Jack. He denies any chest pain, palpitations, shortness of breath, lower extremity edema, syncope. Denies history of [place], coronary disease, hypertension. He denies any cardiac workup/ stress test. He is a current every day smoker. He denies alcohol. He denies illicit drug use, however had a positive cocaine on his urine tox in February 2021. Family states he has been in and out of the hospital due to uncontrolled blood sugars. Patient was recently admitted in February 2021 due to hypoglycemia and seizures. DIAGNOSTICS Most recent echocardiogram 03/28/21 EF 5560 percent, trace mitral regurgitation, trace tricuspid regurgitation, trivial pericardial effusion. Laboratory reviewed, blood sugar 961, sodium 139, potassium 5.5, BUN 87, serum creatinine 2.2, magnesium 2.0, troponin 0.04. Current home cardiac medications include atorvastatin 40 mg nightly, lisinopril 10 mg daily REVIEW OF SYSTEMS At the time of my exam: CONSTITUTIONAL: Denies fever or chills. CARDIOVASCULAR: Denies chest pain, shortness of breath, orthopnea, PND or palpitations. RESPIRATORY: Denies cough. GASTROINTESTINAL: Positive nausea, positive vomiting, positive abdominal pain Denies adiarrhea, constipation, MUSCULOSKELETAL: Denies myalgias. NEUROLOGIC: +confusion Denies numbness, tingling, headache or weakness. ENDOCRINE: Denies fatigue, weight change, polydipsia or polyurina. GENITOURINARY: Denies burning, hematuria or urgency with micturation. HEMATOLOGIC: Denies history of anemia or bleeding. PHYSICAL EXAMINATION Blood pressure 88/61, heart rate 80, afebrile, maintaining a saturation 99% on room air CONSTITUTIONAL: No apparent distress. frail HEENT: Head is normocephalic. Pupils are equal, round. Sclerae anicteric. Mucous membranes of the mouth are moist. No JVD. No carotid bruit. CHEST EXAMINATION: Lungs are clear to auscultation. No chest wall tenderness is noted on palpation or with deep breathing. HEART EXAMINATION: Regular rate and rhythm. S1, S2 heard. No murmurs, gallops or rub. ABDOMEN: Soft, nontender. Positive bowel sounds. EXTREMITIES: 2+ peripheral pulses, no lower extremity edema and no calf tenderness. SKIN: warm, dry NEUROLOGIC EXAMINATION: Patient is awake, alert. ASSESSMENT Generalized Weakness Diabetes Mellitus Hyperglycemia Acute Kidney Injury Weight loss PLAN Obtain EKG Trend troponin No need for repeat echocardiogram with one on 03/28/21 Continue statin Lisinopril held due to REILLY and hypotension Further recommendations based on clinical course Thank you kindly for this consultation. Nurse Practitioner note has been reviewed, I agree with a documented findings and plan of care. Patient was seen and examined. Past Medical History Past Medical History: Diabetes Mellitus Additional Past Medical History / Comment(s): Type 2 DM History of Any Multi-Drug Resistant Organisms: None Reported Past Surgical History: No Surgical Hx Reported Past Anesthesia/Blood Transfusion Reactions: No Reported Reaction Past Psychological History: No Psychological Hx Reported Smoking Status: Current every day smoker Past Alcohol Use History: Occasional Past Drug Use History: None Reported - Past Family History Father Family Medical History: Hypertension Mother Family Medical History: Hypertension Sister(s) Family Medical History: No Reported History Medications and Allergies Home Medications Medication Instructions Recorded Confirmed Type Atorvastatin [Lipitor] 40 mg PO HS #30 tab 03/29/21 04/18/21 Rx Insulin Glargine,Hum.rec.anlog 10 unit SQ HS #0 03/29/21 04/18/21 Rx [Lantus Solostar Pen] Thiamine [Vitamin B-1] 100 mg PO DAILY #30 tab 03/29/21 04/18/21 Rx Hydrocortisone Cream 1 applic TOPICAL BID PRN 04/18/21 04/18/21 History [Hydrocortisone 2.5% Cream] Lisinopril [Prinivil] 10 mg PO DAILY 04/18/21 04/18/21 History diphenhydrAMINE [Benadryl] 50 mg PO QID PRN 04/18/21 04/18/21 History hydrOXYzine pamoate [Vistaril] 25 mg PO TID PRN 04/18/21 04/18/21 History Allergies Allergy/AdvReac Type Severity Reaction Status Date / Time No Known Allergies Allergy Verified 03/27/21 15:40 Physical Exam Vitals: Vital Signs Temp Pulse Resp BP Pulse Ox 05/19/21 11:28 98 F 88 18 88/61 99 Intake and Output 05/19/21 05/19/21 05/19/21 06:59 14:59 22:59 Other: Weight 90.718 kg Results 05/19/21 13:00 05/19/21 13:00 Cardiac Enzymes 05/19/21 05/19/21 Range/Units 13:00 13:00 AST 28 (17-59) U/L Troponin I 0.044 H* (0.000-0.034) ng/mL Coagulation 05/19/21 Range/Units 13:00 PT 11.7 (9.0-12.0) sec APTT 24.6 (22.0-30.0) sec CBC 05/19/21 Range/Units 13:00 WBC 9.9 (3.8-10.6) k/uL RBC 4.91 (4.30-5.90) m/uL Hgb 14.7 (13.0-17.5) gm/dL Hct 47.5 (39.0-53.0) % Plt Count 238 (150-450) k/uL Comprehensive Metabolic Panel 05/19/21 Range/Units 13:00 Sodium 139 (137-145) mmol/L Potassium 5.5 H (3.5-5.1) mmol/L Chloride 97 L (98-107) mmol/L Carbon Dioxide 22 (22-30) mmol/L BUN 87 H (9-20) mg/dL Creatinine 2.24 H (0.66-1.25) mg/dL Glucose 961 H* (74-99) mg/dL Calcium 9.9 (8.4-10.2) mg/dL AST 28 (17-59) U/L ALT 42 (4-49) U/L Alkaline Phosphatase 160 H (38-126) U/L Total Protein 6.6 (6.3-8.2) g/dL Albumin 3.8 (3.5-5.0) g/dL Current Medications Generic Name Dose Route Start Last Admin Trade Name Freq PRN Reason Stop Dose Admin Insulin Human Regular 100 unit 101 mls @ 9.163 mls/hr 05/19/21 14:00 05/19/21 15:13 / Sodium Chloride IV 0.1 units/kg/hr .Q11H2M JOHN 9.163 mls/hr Administration Protocol 0.1 UNITS/KG/HR Sodium Chloride 1,000 mls @ 200 mls/hr 05/19/21 14:00 05/19/21 15:11 Saline 0.9% IV 200 mls/hr .Q5H JOHN Administration Miscellaneous Information 1 each 05/19/21 13:55 Magnesium Replacement Protocol 1 Each Misc MISCELLANE DAILY PRN Per Protocol Protocol Miscellaneous Information 1 each 05/19/21 13:55 Potassium Replacement Protocol 1 Each Misc MISCELLANE DAILY PRN Per Protocol Intake and Output 05/19/21 05/19/21 05/19/21 06:59 14:59 22:59 Other: Weight 90.718 kg Patient Weight 05/20/21 06:59 Weight 90.718 kg 05/19/21 13:00 05/19/21 13:00
--- NOTE | 2021-05-19 15:33 | XR ---
EXAMINATION TYPE: XR chest 1V portable DATE OF EXAM: 05/19/2021 COMPARISON: Chest x-ray 03/27/2021 HISTORY: Cough TECHNIQUE: Single frontal view of the chest is obtained. FINDINGS: There is no focal air space opacity, pleural effusion, or pneumothorax seen. The cardiac silhouette size is within normal limits. There are overlying leads. The osseous structures are intac t. IMPRESSION: No acute process.
[2021-05-19] MEDS ORDERED: ONDANSETRON 4 MG/2 ML VIAL IVP PRN (15:34)
[2021-05-19] MEDS ORDERED: ACETAMINOPHEN TAB 325 MG TAB PO PRN (15:34)
[2021-05-19] MEDS ORDERED: NALOXONE 0.4 MG/ML 1 ML VIAL IV PRN (15:34)
[2021-05-19] MEDS ORDERED: IBUPROFEN 400 MG TAB PO PRN (15:34)
[2021-05-19 15:49] LABS: VBG PH 7.38 (7.31-7.41)
[2021-05-19 16:15] LABS: Glucose,Whole Blood >600 mg/dL (75-99)
[2021-05-19 17:48] LABS: Glucose,Whole Blood 517 mg/dL (75-99)
[2021-05-19 18:52] LABS: Calcium 8.6 mg/dL (8.4-10.2); Phosphorus 4.9 mg/dL (2.5-4.5); Potassium 4.6 mmol/L (3.5-5.1)
[2021-05-19 19:16] LABS: Glucose,Whole Blood 568 mg/dL (75-99)
[2021-05-19 20:17] LABS: Glucose,Whole Blood 357 mg/dL (75-99)
[2021-05-19] MEDS: D5-0.45% NACL WITH KCL 20MEQ/L 1,000 ML IV SCH (20:33)
[2021-05-19] MEDS: ATORVASTATIN 40 MG TAB PO SCH (20:51)
--- NOTE | 2021-05-19 20:52 | CT ---
EXAMINATION TYPE: CT brain wo con DATE OF EXAM: 05/19/2021 COMPARISON: March 27, 2021 HISTORY: AMS CT DLP: 1143.4 mGycm Automated exposure control for dose reduction was used. The ventricles appear normal. There is no mass effect nor midline shift. There is no evidence of intr acranial hemorrhage. Calvarium is intact. There is hypodensity in the periphery of the right cerebellar hemisphere. This measures up to 13 mm i n thickness. 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 N o hemorrhage.
[2021-05-19 20:58] LABS: Glucose,Whole Blood 287 mg/dL (75-99)
[2021-05-19 22:02] LABS: Glucose,Whole Blood 207 mg/dL (75-99)
[2021-05-19 22:53] LABS: Phosphorus 3.3 mg/dL (2.5-4.5); Potassium 3.9 mmol/L (3.5-5.1)
[2021-05-19 23:08] LABS: Glucose,Whole Blood 137 mg/dL (75-99)
[2021-05-20 00:03] LABS: Glucose,Whole Blood 85 mg/dL (75-99)
[2021-05-20 01:57] LABS: Glucose,Whole Blood 103 mg/dL (75-99)
[2021-05-20] MEDS: INSULIN REGULAR 100 UNIT in SODIUM CHLORIDE 0.9% 100 ML IV SCH ×2 (02:14→08:49)
[2021-05-20] MEDS: D5-0.45% NACL WITH KCL 20MEQ/L 1,000 ML IV SCH (04:33)
[2021-05-20 06:15] LABS: Glucose,Whole Blood 171 mg/dL (75-99)
[2021-05-20] MEDS ORDERED: INSULIN DETEMIR (LEVEMIR) 100 UNIT/ML SYR SQ SCH (07:00)
[2021-05-20] MEDS: INSULIN ASPART (NovoLOG) 100 UNIT/ML VIAL SQ SCH ×4 (07:07→21:22)
[2021-05-20 07:25] LABS: Basophils % (A) 0 %; Eosinophils # (A) 0.1 k/uL (0-0.7); Eosinophils % (A) 1 %; HGB 11.9 gm/dL (13.0-17.5); Lymphocytes # (A) 1.1 k/uL (1.0-4.8); Lymphocytes % (A) 11 %; MCH 30.2 pg (25.0-35.0); MCHC 33.1 g/dL (31.0-37.0); Mean Platelet Volume 9.3; Monocytes # (A) 0.5 k/uL (0-1.0); Monocytes % (A) 5 %; Neutrophils # (A) 8.2 k/uL (1.3-7.7); Neutrophils % (A) 81 %; Platelet Count 202 k/uL (150-450); RBC 3.94 m/uL (4.30-5.90); RDW 13.7 % (11.5-15.5); WBC 10.1 k/uL (3.8-10.6)
[2021-05-20 07:27] LABS: MCV 91.5 fL (80.0-100.0)
[2021-05-20 07:43] LABS: Albumin 2.9 g/dL (3.5-5.0); Calcium 9.2 mg/dL (8.4-10.2); Potassium 4.4 mmol/L (3.5-5.1); Total Bilirubin 0.6 mg/dL (0.2-1.3); Total Protein 5.5 g/dL (6.3-8.2)
[2021-05-20] MEDS: ASPIRIN 81 MG PO SCH (08:51)
[2021-05-20] MEDS: THIAMINE 100 MG TAB PO SCH (08:51)
[2021-05-20] MEDS ORDERED: lisinopriL 10 MG TAB PO SCH (09:00)
[2021-05-20 10:34] LABS: Amylase 151 U/L (30-110); Lipase 106 U/L (23-300)
--- NOTE | 2021-05-20 11:34 | P.PN ---
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 We have been asked to see in consultation for elevated troponin. Patient presented to the emergency departmenet on 05/19/21 with dehydration, diabetic ketoacidosis and acute kidney injury. Started on IV fluids and an insulin drip. EKG revealed sinus rhythm, HR 94, no acute ischemic ST-T wave abnormalities. Troponin 0.044, 0.038, 0.048. Most recent echocardiogram 03/28/21 EF 5560% trace mitral regurgitation, trace tricuspid regurgitation, trivial pericardial effusion. Patient seen and examined at bedside, he is in no acute distress. Lying in bed, he has no complaints currently. Sodium 141, potassium 4.3, BUN 66, serum creatinine 1.3. He's currently maintained on aspirin 81 mg daily, atorvastatin 40 mg daily. He is no longer on his insulin drip. PHYSICAL EXAMINATION Blood pressure 114/64, heart rate 53, afebrile, 100% on room air CONSTITUTIONAL: No apparent distress. frail HEENT: Neck supple. No JVD. CHEST EXAMINATION: Lungs are clear to auscultation. HEART EXAMINATION: Regular rate and rhythm. S1, S2 heard. No murmurs, gallops or rub. ABDOMEN: Soft, nontender. Positive bowel sounds. EXTREMITIES: 2+ peripheral pulses, no lower extremity edema and no calf tenderness. NEUROLOGIC EXAMINATION: Patient is awake, alert. ASSESSMENT Elevated troponin, not indicative of acute coronary syndrome Generalized Weakness Diabetes Mellitus Diabetic Ketoacidosis Hyperglycemia Acute Kidney Injury, improving Weight loss PLAN -From a cardiology perspective we will continue medical therapy with aspirin and statin. -Lisinopril held due to REILLY and hypotension -Rest of management per primary -Recommend social work consultation for patient. -No further workup from a cardiology perspective, we will follow the patient as needed. Please reach out with any further questions or concerns. Nurse Practitioner note has been reviewed, I agree with a documented findings and plan of care. Patient was seen and examined. Objective - Vital Signs Vital signs: Vital Signs Temp 98.3 F 05/20/21 08:00 Pulse 53 L 05/20/21 08:00 Resp 20 05/20/21 08:00 BP 114/64 05/20/21 08:00 Pulse Ox 100 05/20/21 08:00 Intake & Output 05/19/21 05/20/21 05/20/21 18:59 06:59 18:59 Intake Total 77.700 Balance 77.700 Weight 90.718 kg 45.5 kg Intake: Intake, IV Titration 77.700 Amount Insulin Regular 100 unit 77.700 In Sodium Chloride 0.9% 100 ml @ 0.1 UNITS/KG/HR 9.163 mls/hr IV .Q11H2M [facility] Rx#:[id number] Other: Voiding Method Diaper Diaper # Voids 1 0 - Labs CBC & Chem 7: 05/20/21 06:44 05/20/21 06:44 Labs: Abnormal Lab Results - Last 24 Hours (Table) 05/19/21 05/19/21 05/19/21 Range/Units 13:00 13:00 13:00 RBC (4.30-5.90) m/uL Hgb (13.0-17.5) gm/dL Hct (39.0-53.0) % MCHC 30.8 L (31.0-37.0) g/dL Neutrophils # 8.9 H (1.3-7.7) k/uL Lymphocytes # 0.6 L (1.0-4.8) k/uL VBG pCO2 (37-51) mmHg VBG HCO3 (24-28) mmol/L Sodium (137-145) mmol/L Potassium 5.5 H (3.5-5.1) mmol/L Chloride 97 L (98-107) mmol/L Carbon Dioxide (22-30) mmol/L BUN 87 H (9-20) mg/dL Creatinine 2.24 H (0.66-1.25) mg/dL Glucose 961 H* (74-99) mg/dL POC Glucose (mg/dL) (75-99) mg/dL Plasma Lactic Acid Jordon 2.2 H* (0.7-2.0) mmol/L Phosphorus 7.7 H (2.5-4.5) mg/dL Magnesium 3.0 H (1.6-2.3) mg/dL AST (17-59) U/L Alkaline Phosphatase 160 H (38-126) U/L Troponin I (0.000-0.034) ng/mL Total Protein (6.3-8.2) g/dL Albumin (3.5-5.0) g/dL Urine Protein (Negative) Urine Glucose (UA) (Negative) Urine Ketones (Negative) 05/19/21 05/19/21 05/19/21 Range/Units 13:00 13:08 14:07 RBC (4.30-5.90) m/uL Hgb (13.0-17.5) gm/dL Hct (39.0-53.0) % MCHC (31.0-37.0) g/dL Neutrophils # (1.3-7.7) k/uL Lymphocytes # (1.0-4.8) k/uL VBG pCO2 (37-51) mmHg VBG HCO3 (24-28) mmol/L Sodium (137-145) mmol/L Potassium (3.5-5.1) mmol/L Chloride (98-107) mmol/L Carbon Dioxide (22-30) mmol/L BUN (9-20) mg/dL Creatinine (0.66-1.25) mg/dL Glucose (74-99) mg/dL POC Glucose (mg/dL) >600 H (75-99) mg/dL Plasma Lactic Acid Jordon (0.7-2.0) mmol/L Phosphorus (2.5-4.5) mg/dL Magnesium (1.6-2.3) mg/dL AST (17-59) U/L Alkaline Phosphatase (38-126) U/L Troponin I 0.044 H* (0.000-0.034) ng/mL Total Protein (6.3-8.2) g/dL Albumin (3.5-5.0) g/dL Urine Protein Trace H (Negative) Urine Glucose (UA) 4+ H (Negative) Urine Ketones Trace H (Negative) 05/19/21 05/19/21 05/19/21 Range/Units 15:37 16:13 17:45 RBC (4.30-5.90) m/uL Hgb (13.0-17.5) gm/dL Hct (39.0-53.0) % MCHC (31.0-37.0) g/dL Neutrophils # (1.3-7.7) k/uL Lymphocytes # (1.0-4.8) k/uL VBG pCO2 35 L (37-51) mmHg VBG HCO3 20 L (24-28) mmol/L Sodium (137-145) mmol/L Potassium (3.5-5.1) mmol/L Chloride (98-107) mmol/L Carbon Dioxide (22-30) mmol/L BUN (9-20) mg/dL Creatinine (0.66-1.25) mg/dL Glucose (74-99) mg/dL POC Glucose (mg/dL) >600 H 517 H (75-99) mg/dL Plasma Lactic Acid Jordon (0.7-2.0) mmol/L Phosphorus (2.5-4.5) mg/dL Magnesium (1.6-2.3) mg/dL AST (17-59) U/L Alkaline Phosphatase (38-126) U/L Troponin I (0.000-0.034) ng/mL Total Protein (6.3-8.2) g/dL Albumin (3.5-5.0) g/dL Urine Protein (Negative) Urine Glucose (UA) (Negative) Urine Ketones (Negative) 05/19/21 05/19/21 05/19/21 Range/Units 18:12 18:12 19:13 RBC (4.30-5.90) m/uL Hgb (13.0-17.5) gm/dL Hct (39.0-53.0) % MCHC (31.0-37.0) g/dL Neutrophils # (1.3-7.7) k/uL Lymphocytes # (1.0-4.8) k/uL VBG pCO2 (37-51) mmHg VBG HCO3 (24-28) mmol/L Sodium 135 L (137-145) mmol/L Potassium (3.5-5.1) mmol/L Chloride (98-107) mmol/L Carbon Dioxide 21 L (22-30) mmol/L BUN 83 H (9-20) mg/dL Creatinine 1.71 H (0.66-1.25) mg/dL Glucose 535 H* (74-99) mg/dL POC Glucose (mg/dL) 568 H (75-99) mg/dL Plasma Lactic Acid Jordon (0.7-2.0) mmol/L Phosphorus 4.9 H (2.5-4.5) mg/dL Magnesium (1.6-2.3) mg/dL AST (17-59) U/L Alkaline Phosphatase (38-126) U/L Troponin I 0.038 H* (0.000-0.034) ng/mL Total Protein (6.3-8.2) g/dL Albumin (3.5-5.0) g/dL Urine Protein (Negative) Urine Glucose (UA) (Negative) Urine Ketones (Negative) 05/19/21 05/19/21 05/19/21 Range/Units 20:15 20:56 22:01 RBC (4.30-5.90) m/uL Hgb (13.0-17.5) gm/dL Hct (39.0-53.0) % MCHC (31.0-37.0) g/dL Neutrophils # (1.3-7.7) k/uL Lymphocytes # (1.0-4.8) k/uL VBG pCO2 (37-51) mmHg VBG HCO3 (24-28) mmol/L Sodium (137-145) mmol/L Potassium (3.5-5.1) mmol/L Chloride (98-107) mmol/L Carbon Dioxide (22-30) mmol/L BUN (9-20) mg/dL Creatinine (0.66-1.25) mg/dL Glucose (74-99) mg/dL POC Glucose (mg/dL) 357 H 287 H 207 H (75-99) mg/dL Plasma Lactic Acid Jordon (0.7-2.0) mmol/L Phosphorus (2.5-4.5) mg/dL Magnesium (1.6-2.3) mg/dL AST (17-59) U/L Alkaline Phosphatase (38-126) U/L Troponin I (0.000-0.034) ng/mL Total Protein (6.3-8.2) g/dL Albumin (3.5-5.0) g/dL Urine Protein (Negative) Urine Glucose (UA) (Negative) Urine Ketones (Negative) 05/19/21 05/19/21 05/19/21 Range/Units 22:22 22:22 23:06 RBC (4.30-5.90) m/uL Hgb (13.0-17.5) gm/dL Hct (39.0-53.0) % MCHC (31.0-37.0) g/dL Neutrophils # (1.3-7.7) k/uL Lymphocytes # (1.0-4.8) k/uL VBG pCO2 (37-51) mmHg VBG HCO3 (24-28) mmol/L Sodium (137-145) mmol/L Potassium (3.5-5.1) mmol/L Chloride 110 H (98-107) mmol/L Carbon Dioxide (22-30) mmol/L BUN 78 H (9-20) mg/dL Creatinine 1.53 H (0.66-1.25) mg/dL Glucose 167 H (74-99) mg/dL POC Glucose (mg/dL) 137 H (75-99) mg/dL Plasma Lactic Acid Jordon (0.7-2.0) mmol/L Phosphorus (2.5-4.5) mg/dL Magnesium (1.6-2.3) mg/dL AST (17-59) U/L Alkaline Phosphatase (38-126) U/L Troponin I 0.048 H* (0.000-0.034) ng/mL Total Protein (6.3-8.2) g/dL Albumin (3.5-5.0) g/dL Urine Protein (Negative) Urine Glucose (UA) (Negative) Urine Ketones (Negative) 05/20/21 05/20/21 05/20/21 Range/Units 01:56 06:12 06:44 RBC (4.30-5.90) m/uL Hgb (13.0-17.5) gm/dL Hct (39.0-53.0) % MCHC (31.0-37.0) g/dL Neutrophils # (1.3-7.7) k/uL Lymphocytes # (1.0-4.8) k/uL VBG pCO2 (37-51) mmHg VBG HCO3 (24-28) mmol/L Sodium (137-145) mmol/L Potassium (3.5-5.1) mmol/L Chloride 110 H (98-107) mmol/L Carbon Dioxide (22-30) mmol/L BUN 66 H (9-20) mg/dL Creatinine 1.36 H (0.66-1.25) mg/dL Glucose 181 H (74-99) mg/dL POC Glucose (mg/dL) 103 H 171 H (75-99) mg/dL Plasma Lactic Acid Jordon (0.7-2.0) mmol/L Phosphorus (2.5-4.5) mg/dL Magnesium (1.6-2.3) mg/dL AST 60 H (17-59) U/L Alkaline Phosphatase (38-126) U/L Troponin I (0.000-0.034) ng/mL Total Protein 5.5 L (6.3-8.2) g/dL Albumin 2.9 L (3.5-5.0) g/dL Urine Protein (Negative) Urine Glucose (UA) (Negative) Urine Ketones (Negative) 05/20/21 Range/Units 06:44 RBC 3.94 L (4.30-5.90) m/uL Hgb 11.9 L (13.0-17.5) gm/dL Hct 36.0 L (39.0-53.0) % MCHC (31.0-37.0) g/dL Neutrophils # 8.2 H (1.3-7.7) k/uL Lymphocytes # (1.0-4.8) k/uL VBG pCO2 (37-51) mmHg VBG HCO3 (24-28) mmol/L Sodium (137-145) mmol/L Potassium (3.5-5.1) mmol/L Chloride (98-107) mmol/L Carbon Dioxide (22-30) mmol/L BUN (9-20) mg/dL Creatinine (0.66-1.25) mg/dL Glucose (74-99) mg/dL POC Glucose (mg/dL) (75-99) mg/dL Plasma Lactic Acid Jordon (0.7-2.0) mmol/L Phosphorus (2.5-4.5) mg/dL Magnesium (1.6-2.3) mg/dL AST (17-59) U/L Alkaline Phosphatase (38-126) U/L Troponin I (0.000-0.034) ng/mL Total Protein (6.3-8.2) g/dL Albumin (3.5-5.0) g/dL Urine Protein (Negative) Urine Glucose (UA) (Negative) Urine Ketones (Negative)
[2021-05-20 11:45] LABS: Glucose,Whole Blood 194 mg/dL (75-99)
[2021-05-20 16:34] LABS: Glucose,Whole Blood 62 mg/dL (75-99)
[2021-05-20 17:04] LABS: Glucose,Whole Blood 67 mg/dL (75-99)
[2021-05-20 17:16] LABS: Glucose,Whole Blood 109 mg/dL (75-99)
[2021-05-20 17:30] LABS: Glucose,Whole Blood 281 mg/dL (75-99)
--- NOTE | 2021-05-20 19:32 | HP ---
HISTORY AND PHYSICAL CHIEF COMPLAINT: Weakness, malaise, nausea and vomiting. HISTORY OF PRESENT ILLNESS: This is another admission for this 61-year-old white male. He has recently been diagnosed as a type 2 diabetic. He has been on for Ozempic and Lantus. He came into the emergency room with dehydration, nausea and vomiting and a blood sugar of 961. His gap was 20. Bicarb was 22 and his potassium was 5.5. Lactic acid was also slightly elevated. He indicated in the emergency room that he was not taking anything other than ozempic but our records indicate that he is supposed to have been on Lantus 20 units once a day. He was last seen on April 12 and he was started on lisinopril at that time. He was supposed to come back in a week, but never did. REVIEW OF SYSTEMS: He denies any focal neurologic problems, chest pain, shortness of breath, abdominal pain, hematemesis, melena, hematochezia, etc. Past medical history, family history and personal and social histories are noncontributory. He is not allergic to any medication. He is supposed to be on hydroxyzine 25 mg t.i.d., atorvastatin 40 hs, Pepcid 40 mg once a day, vitamin D, Lantus, Ozempic, omeprazole 20 mg once a day, amlodipine 5 mg once a day, and metformin 1 g twice a day. He takes Flexeril 10 mg t.i.d. p.r.n. He does smoke. He relates that he drinks only occasionally. PHYSICAL EXAM: Pulse is 115 and blood pressure is 93/50. Respirations are 38. In general he appeared to be slender, slightly lethargic and I dehydrated. Head, ears, eyes, nose, mouth and throat revealed dry mucous membranes. Neck veins are not distended. Chest is clear to auscultation. Cardiac exam demonstrates sinus tachycardia and there are no murmurs or extra sounds. The abdomen is flat, soft and nontender. Bowel sounds are present. Extremities are normal and neurologically he is intact. He is admitted to the hospital with diagnoses: 1. Diabetic ketoacidosis. 2. Dehydration. 3. Hyperkalemia. PLAN: 1. Bedrest. 2. DKA protocol insulin drip. 3. Diabetic teaching. MMODL / IJN: [id number] /
--- NOTE | 2021-05-20 19:57 | PN ---
PROGRESS NOTE CHIEF COMPLAINT: DKA. HISTORY OF PRESENT ILLNESS: This gentleman is doing better. Blood sugars have dropped down. Insulin drip was stopped. PHYSICAL EXAMINATION: Chest is clear to auscultation. Cardiac exam demonstrates sinus tachycardia. Abdomen is soft, nontender. He still remains very dehydrated with poor skin turgor. IMPRESSION: Diabetic ketoacidosis. PLAN: 1. Continue with IV fluids. 2. Add long-acting insulin with sliding scale. 3. Diabetic education. MMODL / IJN: [id number] /
[2021-05-20 20:11] LABS: Glucose,Whole Blood 152 mg/dL (75-99)
[2021-05-20] MEDS: ATORVASTATIN 40 MG TAB PO SCH (21:22)
[2021-05-21 02:30] LABS: Glucose,Whole Blood 93 mg/dL (75-99)
[2021-05-21] MEDS: D5-0.45% NACL WITH KCL 20MEQ/L 1,000 ML IV SCH (02:34)
[2021-05-21 05:59] LABS: Glucose,Whole Blood 172 mg/dL (75-99)
[2021-05-21] MEDS: PANTOPRAZOLE 40 MG TABLET PO SCH (06:20)
[2021-05-21] MEDS: INSULIN DETEMIR (LEVEMIR) 100 UNIT/ML SYR SQ SCH (06:20)
[2021-05-21] MEDS: INSULIN ASPART (NovoLOG) 100 UNIT/ML VIAL SQ SCH ×4 (06:20→21:43)
[2021-05-21] MEDS: THIAMINE 100 MG TAB PO SCH (08:28)
[2021-05-21] MEDS: lisinopriL 20 MG TAB PO SCH (08:28)
[2021-05-21] MEDS: ASPIRIN 81 MG PO SCH (08:28)
[2021-05-21] MEDS: FAMOTIDINE 20 MG TAB PO SCH (08:28)
[2021-05-21 11:24] LABS: Glucose,Whole Blood 269 mg/dL (75-99)
[2021-05-21 16:31] LABS: Glucose,Whole Blood 83 mg/dL (75-99)
--- NOTE | 2021-05-21 19:23 | PN ---
PROGRESS NOTE DATE OF SERVICE: 05/21/2021 CHIEF COMPLAINT: DKA. HISTORY OF PRESENT ILLNESS: This gentleman is still dehydrated. He is still weak. Blood sugars are improved. He has not been seen by Diabetic Education yet. PHYSICAL EXAMINATION: He remains about 10% dehydrated. Skin turgor is poor. Head, ears, eyes, nose, mouth and neck are normal. Chest is clear. Cardiac exam is normal. The abdomen is flat and soft. IMPRESSION: 1. Diabetic ketoacidosis. 2. Dehydration. PLAN: 1. Continue with IV fluids. 2. Await diabetic teaching. MMODL / IJN: [id number] /
[2021-05-21 19:39] LABS: Glucose,Whole Blood 165 mg/dL (75-99)
[2021-05-21] MEDS: ATORVASTATIN 40 MG TAB PO SCH (21:43)
[2021-05-22 02:34] LABS: Glucose,Whole Blood 144 mg/dL (75-99)
[2021-05-22] MEDS: D5-0.45% NACL WITH KCL 20MEQ/L 1,000 ML IV SCH (05:02)
[2021-05-22 06:12] LABS: Glucose,Whole Blood 233 mg/dL (75-99)
[2021-05-22] MEDS: INSULIN DETEMIR (LEVEMIR) 100 UNIT/ML SYR SQ SCH (06:24)
[2021-05-22] MEDS: INSULIN ASPART (NovoLOG) 100 UNIT/ML VIAL SQ SCH ×4 (06:24→20:28)
[2021-05-22] MEDS: PANTOPRAZOLE 40 MG TABLET PO SCH (06:24)
[2021-05-22] MEDS: ASPIRIN 81 MG PO SCH (08:49)
[2021-05-22] MEDS: FAMOTIDINE 20 MG TAB PO SCH (08:49)
[2021-05-22] MEDS: lisinopriL 20 MG TAB PO SCH (08:49)
[2021-05-22] MEDS: THIAMINE 100 MG TAB PO SCH (08:49)
[2021-05-22 10:37] LABS: Basophils % (A) 0 %; Eosinophils # (A) 0.3 k/uL (0-0.7); Eosinophils % (A) 9 %; HCT 35.5 % (39.0-53.0); HGB 11.5 gm/dL (13.0-17.5); Lymphocytes # (A) 0.6 k/uL (1.0-4.8); Lymphocytes % (A) 18 %; MCH 29.6 pg (25.0-35.0); MCHC 32.3 g/dL (31.0-37.0); MCV 91.7 fL (80.0-100.0); Mean Platelet Volume 10.5; Monocytes # (A) 0.2 k/uL (0-1.0); Monocytes % (A) 7 %; Neutrophils # (A) 2.3 k/uL (1.3-7.7); Neutrophils % (A) 64 %; Platelet Count 164 k/uL (150-450); RBC 3.87 m/uL (4.30-5.90); RDW 13.9 % (11.5-15.5); WBC 3.5 k/uL (3.8-10.6)
[2021-05-22 10:55] LABS: ALT 54 U/L (4-49); AST 61 U/L (17-59); African American GFR (CKD) >90 (>60 ml/min/1.73 sqM); Albumin 2.6 g/dL (3.5-5.0); Alkaline Phosphatase 94 U/L (38-126); Anion Gap 2 mmol/L; Blood Urea Nitrogen 27 mg/dL (9-20); Carbon Dioxide 26 mmol/L (22-30); Chloride 108 mmol/L (98-107); Glucose 154 mg/dL (74-99); Non-African American GFR(CKD) 89 (>60 ml/min/1.73 sqM); Potassium 4.2 mmol/L (3.5-5.1); Sodium 136 mmol/L (137-145); Total Bilirubin 0.5 mg/dL (0.2-1.3); Total Protein 5.2 g/dL (6.3-8.2)
[2021-05-22 11:54] LABS: Glucose,Whole Blood 152 mg/dL (75-99)
--- NOTE | 2021-05-22 15:00 | DS ---
DISCHARGE SUMMARY CHIEF COMPLAINT: DKA. HISTORY OF PRESENT ILLNESS AND PHYSICAL EXAMINATION: Details of this man's history and physical can be found in the initial workup. LABORATORY STUDIES: While he was in the hospital he had laboratory studies, details of which can be found in the laboratory section of his chart. COURSE IN THE HOSPITAL: After admission he was started on an insulin drip and IV fluids. He was rehydrated. Blood sugars came down nicely and he was converted over to basal insulin with sliding scale. His Lantus was raised to 14 units and he will be seen in the office in several days. FINAL DIAGNOSES: 1. Diabetic ketoacidosis. 2. Dehydration. 3. Hypertension. OPERATIONS: None. CONSULTATIONS: None. He is improved. MMODL / IJN: [id number] /
[2021-05-22 16:41] LABS: Glucose,Whole Blood 172 mg/dL (75-99)
[2021-05-22 19:42] LABS: Glucose,Whole Blood 251 mg/dL (75-99)
[2021-05-22] MEDS: ATORVASTATIN 40 MG TAB PO SCH (20:28)
[2021-05-23 02:00] LABS: Glucose,Whole Blood 267 mg/dL (75-99)
[2021-05-23] MEDS: D5-0.45% NACL WITH KCL 20MEQ/L 1,000 ML IV SCH (04:08)
[2021-05-23 04:46] VITALS: RESP 18
[2021-05-23 05:56] LABS: Glucose,Whole Blood 237 mg/dL (75-99)
[2021-05-23] MEDS: INSULIN ASPART (NovoLOG) 100 UNIT/ML VIAL SQ SCH (05:58)
[2021-05-23] MEDS: PANTOPRAZOLE 40 MG TABLET PO SCH (05:58)
[2021-05-23] MEDS ORDERED: INSULIN DETEMIR (LEVEMIR) 100 UNIT/ML SYR SQ SCH (07:00)
[2021-05-23 08:52] VITALS: BP 119/75; PULSE 56; TEMP 98.6
[2021-05-23] MEDS: FAMOTIDINE 20 MG TAB PO SCH (08:52)
[2021-05-23] MEDS: THIAMINE 100 MG TAB PO SCH (08:52)
[2021-05-23] MEDS: ASPIRIN 81 MG PO SCH (08:52)
[2021-05-23] MEDS: lisinopriL 20 MG TAB PO SCH (08:52)
[2021-05-23 11:45] VITALS: BMI 13.7
== END 2021-05-23 12:06 | DRG 638 ==
LOC: EC 09:05 → 3SCARD 15:08
PROVIDERS: ADMIT Family Medicine; ATTEND Family Medicine
DX: E11.10 Type 2 diabetes mellitus with ketoacidosis without coma (principal); N17.9 Acute kidney failure, unspecified; R64 Cachexia; Z68.1 Body mass index [BMI] 19.9 or less, adult; Z20.822 Contact with and (suspected) exposure to COVID-19; I10 Essential (primary) hypertension; E86.0 Dehydration; E87.5 Hyperkalemia; R77.8 Other specified abnormalities of plasma proteins; F17.210 Nicotine dependence, cigarettes, uncomplicated; Z71.6 Tobacco abuse counseling; Z79.899 Other long term (current) drug therapy; Z86.73 Personal history of transient ischemic attack (TIA), and cerebral infarction without residual deficits; Z82.49 Family history of ischemic heart disease and other diseases of the circulatory system
CPT/HCPCS: 36415; 70450; 71045; 80048; 80051; 80053; 81003; 82009; 82150; 82565; 82803; 82947; 83036; 83605; 83690; 83735; 84100; 84484; 84520; 85025; 85610; 85730; 87635; 93005; 96360; 96361; 99291

== ENCOUNTER 2021-05-28 17:34 | Inpatient (IN) | payer OTHER ==
[2021-05-28 20:30] LABS: Basophils % (A) 0 %; Eosinophils # (A) 0.3 k/uL (0-0.7); Eosinophils % (A) 4 %; HCT 32.3 % (39.0-53.0); HGB 10.9 gm/dL (13.0-17.5); Lymphocytes # (A) 0.9 k/uL (1.0-4.8); Lymphocytes % (A) 10 %; MCH 29.9 pg (25.0-35.0); MCHC 33.8 g/dL (31.0-37.0); MCV 88.3 fL (80.0-100.0); Mean Platelet Volume 7.6; Monocytes # (A) 0.7 k/uL (0-1.0); Monocytes % (A) 8 %; Neutrophils # (A) 6.5 k/uL (1.3-7.7); Neutrophils % (A) 75 %; RBC 3.65 m/uL (4.30-5.90); RDW 14.9 % (11.5-15.5); WBC 8.7 k/uL (3.8-10.6)
--- NOTE | 2021-05-28 20:49 | XR ---
EXAMINATION TYPE: XR foot complete RT DATE OF EXAM: 05/28/2021 COMPARISON: NONE HISTORY: 61 years Male. STUDY INDICATION GIVEN: 1st digit infection . TECHNIQUE: 3 radiographs of the right foot IMPRESSION: There is soft tissue swelling along the distal aspect of the first digit. There is lucency involving the plantar aspect of the distal phalanx of the first digit. 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 There is an accessory ossicle adjacent to the cuboid. No acute fracture or dislocation appreciated.
[2021-05-28 20:50] LABS: ALT 29 U/L (4-49); AST 21 U/L (17-59); African American GFR (CKD) >90 (>60 ml/min/1.73 sqM); Alkaline Phosphatase 85 U/L (38-126); Anion Gap 7 mmol/L; Blood Urea Nitrogen 15 mg/dL (9-20); Calcium 8.5 mg/dL (8.4-10.2); Carbon Dioxide 23 mmol/L (22-30); Chloride 107 mmol/L (98-107); Glucose 155 mg/dL (74-99); Non-African American GFR(CKD) >90 (>60 ml/min/1.73 sqM); Sodium 137 mmol/L (137-145); Total Bilirubin 0.3 mg/dL (0.2-1.3); Total Protein 5.9 g/dL (6.3-8.2)
[2021-05-28 20:51] LABS: Platelet Count 517 k/uL (150-450)
[2021-05-28] MEDS ORDERED: VANCOMYCIN IV PER PHARMACY 1 EACH MISC MISCELLANE PRN (21:19)
[2021-05-28] MEDS ORDERED: PIPERACILLIN-TAZOBACTAM 3.375 GM in SODIUM CHLORIDE 0.9% 100 ML IVPB STA (21:19)
[2021-05-28] MEDS ORDERED: NALOXONE 0.4 MG/ML 1 ML VIAL IV PRN (21:22)
--- NOTE | 2021-05-28 21:22 | ED ---
Extremity Problem HPI - General Chief complaint: Extremity Problem,Nontraumatic Stated complaint: Rt Toe Infection Time Seen by Provider: 05/28/21 20:04 Source: patient, EMS, RN notes reviewed Mode of arrival: EMS Limitations: no limitations - History of Present Illness Initial comments: 61-year-old male present emergency Department from [facility] with chief complaint of infection to his toe. Patient states this started last days. Patient was recent hospital for uncontrolled diabetes, hyperglycemia. Patient noted having increasing swelling, pain to the digit. Patient is not well- controlled diabetic. Patient denies any trauma patient offers not complaints. - Related Data Home Medications Medication Instructions Recorded Confirmed Hydrocortisone Cream 1 applic TOPICAL BID PRN 04/18/21 05/19/21 [Hydrocortisone 2.5% Cream] diphenhydrAMINE [Benadryl] 50 mg PO QID PRN 04/18/21 05/19/21 Famotidine 40 mg PO DAILY 05/19/21 05/19/21 Omeprazole 20 mg PO DAILY 05/19/21 05/19/21 Ozempic 2mg/1.5ml 0.5 mg SQ Q7D 05/19/21 05/19/21 lisinopriL 40 mg PO DAILY 05/19/21 05/19/21 Previous Rx's Medication Instructions Recorded Atorvastatin [Lipitor] 40 mg PO HS #30 tab 03/29/21 Thiamine [Vitamin B-1] 100 mg PO DAILY #30 tab 03/29/21 Insulin Detemir (Levemir) [Levemir] 14 unit SQ DAILY@0700 30 Days #1 05/22/21 pen Allergies Allergy/AdvReac Type Severity Reaction Status Date / Time No Known Allergies Allergy Verified 05/28/21 18:44 Review of Systems ROS Statement: Those systems with pertinent positive or pertinent negative responses have been documented in the HPI. ROS Other: All systems not noted in ROS Statement are negative. Past Medical History Past Medical History: Diabetes Mellitus, Hypertension Additional Past Medical History / Comment(s): Type 2 DM, One seizure previous ho psital stay from a head injury. History of Any Multi-Drug Resistant Organisms: None Reported Past Surgical History: No Surgical Hx Reported Additional Past Surgical History / Comment(s): Kidney stone Stent that was temporary. Past Anesthesia/Blood Transfusion Reactions: No Reported Reaction Past Psychological History: No Psychological Hx Reported Smoking Status: Current every day smoker Past Alcohol Use History: Occasional Past Drug Use History: None Reported - Past Family History Father Family Medical History: Hypertension Mother Family Medical History: Hypertension Sister(s) Family Medical History: No Reported History General Exam Limitations: no limitations General appearance: alert, in no apparent distress Head exam: Present: atraumatic, normocephalic, normal inspection Neck exam: Present: normal inspection, full ROM. Absent: tenderness, meningismus, lymphadenopathy Respiratory exam: Present: normal lung sounds bilaterally. Absent: respiratory distress, wheezes, rales, rhonchi, stridor Cardiovascular Exam: Present: regular rate, normal rhythm, normal heart sounds. Absent: systolic murmur, diastolic murmur, rubs, gallop, clicks Extremities exam: Present: other (Right foot first digit there is open sore, eschar to the toe, necrotic gangrene, pulses are faint but palpable.) Course Vital Signs 05/28/21 18:44 Temperature 98.4 F Pulse Rate 57 L Respiratory 20 Rate Blood Pressure 134/91 O2 Sat by Pulse 99 Oximetry Medical Decision Making - Medical Decision Making Patient has evidence of gangrenous toe, diabetic ulcer patient will be admitted for IV and advised, vascular's consult - Lab Data Result diagrams: 05/28/21 20:24 05/28/21 20:24 Lab Results 05/28/21 05/28/21 05/28/21 Range/Units 20:24 20:24 20:24 WBC 8.7 (3.8-10.6) k/uL RBC 3.65 L (4.30-5.90) m/uL Hgb 10.9 L (13.0-17.5) gm/dL Hct 32.3 L (39.0-53.0) % MCV 88.3 (80.0-100.0) fL MCH 29.9 (25.0-35.0) pg MCHC 33.8 (31.0-37.0) g/dL RDW 14.9 (11.5-15.5) % Plt Count 517 H D (150-450) k/uL MPV 7.6 Neutrophils % 75 % Lymphocytes % 10 % Monocytes % 8 % Eosinophils % 4 % Basophils % 0 % Neutrophils # 6.5 (1.3-7.7) k/uL Lymphocytes # 0.9 L (1.0-4.8) k/uL Monocytes # 0.7 (0-1.0) k/uL Eosinophils # 0.3 (0-0.7) k/uL Basophils # 0.0 (0-0.2) k/uL Sodium 137 (137-145) mmol/L Potassium 4.0 (3.5-5.1) mmol/L Chloride 107 (98-107) mmol/L Carbon Dioxide 23 (22-30) mmol/L Anion Gap 7 mmol/L BUN 15 (9-20) mg/dL Creatinine 0.85 (0.66-1.25) mg/dL Est GFR (CKD-EPI)AfAm >90 (>60 ml/min/1.73 sqM) Est GFR (CKD-EPI)NonAf >90 (>60 ml/min/1.73 sqM) Glucose 155 H (74-99) mg/dL Plasma Lactic Acid Jordon 0.9 (0.7-2.0) mmol/L Calcium 8.5 (8.4-10.2) mg/dL Total Bilirubin 0.3 (0.2-1.3) mg/dL AST 21 (17-59) U/L ALT 29 (4-49) U/L Alkaline Phosphatase 85 (38-126) U/L C-Reactive Protein 6.0 H (<1.0) mg/dL Total Protein 5.9 L (6.3-8.2) g/dL Albumin 3.0 L (3.5-5.0) g/dL Disposition Clinical Impression: Gangrene of toe of right foot, Diabetic infection of right foot Disposition: ADMITTED IP TO THIS [facility] Referrals: Alphonso Jack MD [Primary Care Provider] - 1-2 days
[2021-05-28] MEDS ORDERED: VANCOMYCIN 1,000 MG in SODIUM CHLORIDE 0.9% 250 ML IVPB ONE (21:30)
[2021-05-29] MEDS ORDERED: PIPERACILLIN-TAZOBACTAM 3.375 GM in SODIUM CHLORIDE 0.9% 100 ML IVPB SCH ×2
[2021-05-29] MEDS: PIPERACILLIN-TAZOBACTAM 3.375 GM in SODIUM CHLORIDE 0.9% 100 ML IVPB SCH ×3 (06:07→21:51)
[2021-05-29 07:25] LABS: Glucose,Whole Blood 203 mg/dL (75-99)
[2021-05-29] MEDS: INSULIN ASPART (NovoLOG) 100 UNIT/ML VIAL SQ SCH ×4 (07:55→21:52)
[2021-05-29] MEDS ORDERED: diphenhydrAMINE 50 MG CAP PO PRN (09:45)
[2021-05-29] MEDS ORDERED: HYDROCORTISONE TOPICAL PRN (09:45)
[2021-05-29 11:35] LABS: Glucose,Whole Blood 324 mg/dL (75-99)
[2021-05-29] MEDS: VANCOMYCIN 1,000 MG in SODIUM CHLORIDE 0.9% 250 ML IVPB SCH (11:49)
--- NOTE | 2021-05-29 12:32 | P.GSCN ---
History of Present Illness Consult date: 05/29/21 Reason for Consult: gangrene toe Requesting physician: Alphonso Jack History of present illness: This a 61-year-old -[place] male with a past medical history including diabetes mellitus hypertension, and closed head injury along with tobacco abuse who presented to the emergency department with complaints of infection to his great toe. And states he started noticing discoloration of his right great toe 2-3 days ago. Patient states toe is been painful with increased swelling. States he was a heavy smoker but has cut down and smokes 1-2 cigarettes a day. X-ray of the right foot shows soft tissue swelling along the distal aspect of the first digit. There is lucency involving the plantar aspect of the distal phalanx of the first digit. Mild osteoarthrosis of the foot. There is accessory ossicle adjacent to the cuboid. No fracture or dislocation. He denies any fevers or chills no nausea, vomiting, abdominal pain, shortness of breath or chest pain. Review of Systems 14 point review of systems was completed all pertinent positives and negatives as stated in the HPI. Past Medical History Past Medical History: Diabetes Mellitus, Hypertension Additional Past Medical History / Comment(s): Type 2 DM, One seizure previous hopsital stay from a head injury. History of Any Multi-Drug Resistant Organisms: None Reported Past Surgical History: No Surgical Hx Reported Additional Past Surgical History / Comment(s): Kidney stone Stent that was temporary. Past Anesthesia/Blood Transfusion Reactions: No Reported Reaction Past Psychological History: No Psychological Hx Reported Smoking Status: Current every day smoker Past Alcohol Use History: Occasional Past Drug Use History: None Reported - Past Family History Father Family Medical History: Hypertension Mother Family Medical History: Hypertension Sister(s) Family Medical History: No Reported History Medications and Allergies Home Medications Medication Instructions Recorded Confirmed Type Atorvastatin [Lipitor] 40 mg PO HS #30 tab 03/29/21 05/28/21 Rx Hydrocortisone Cream 1 applic TOPICAL BID PRN 04/18/21 05/28/21 History [Hydrocortisone 2.5% Cream] diphenhydrAMINE [Benadryl] 50 mg PO Q6H PRN 04/18/21 05/28/21 History Famotidine 40 mg PO DAILY@0800 05/19/21 05/28/21 History Omeprazole 40 mg PO DAILY@0800 05/19/21 05/28/21 History Ozempic 2mg/1.5ml 0.5 mg SQ WE@0800 05/19/21 05/28/21 History lisinopriL 40 mg PO DAILY@0800 05/19/21 05/28/21 History Acetaminophen [Acetaminophen ER] 650 mg PO Q6H PRN 05/28/21 05/28/21 History Insulin Aspart [NovoLOG Flexpen] See Protocol SQ ACHS 05/28/21 05/28/21 History Insulin Detemir (Levemir) [Levemir] 16 unit SQ DAILY@0800 05/28/21 05/28/21 History Thiamine [Vitamin B-1] 100 mg PO DAILY@0800 05/28/21 05/28/21 History Allergies Allergy/AdvReac Type Severity Reaction Status Date / Time No Known Allergies Allergy Verified 05/28/21 21:36 Surgical - Exam Vital Signs Temp Pulse Resp BP Pulse Ox 98.4 F 57 L 20 134/91 99 05/28/21 18:44 05/28/21 18:44 05/28/21 18:44 05/28/21 18:44 05/28/21 18:44 General appearance: The patient is alert, oriented, appears in no acute distress. HET: Head is normocephalic and atraumatic. Neck: Supple without lymphadenopathy. Trachea midline. No carotid bruit. Heart: S1 S2. Regular rate and rhythm. Lungs: Clear to auscultation. Abdomen: Soft, nontender, nondistended. Extremities: No lower extremity edema bilaterally. Right great toe with dry gangrene. Palpable bilateral femoral and popliteal pulses. Right lower extremity with nonpalpable dorsalis pedis and posterior tibialis pulses. Left lower extremity with palpable posterior tibialis and dorsalis pedis pulses.eurological: No focal deficits. Strength and sensation are grossly intact. Results - Labs 05/28/21 20:24 05/28/21 20:24 Abnormal Lab Results - Last 24 Hours (Table) 05/28/21 05/28/21 05/29/21 Range/Units 20:24 20:24 07:24 RBC 3.65 L (4.30-5.90) m/uL Hgb 10.9 L (13.0-17.5) gm/dL Hct 32.3 L (39.0-53.0) % Plt Count 517 H D (150-450) k/uL Lymphocytes # 0.9 L (1.0-4.8) k/uL Glucose 155 H (74-99) mg/dL POC Glucose (mg/dL) 203 H (75-99) mg/dL C-Reactive Protein 6.0 H (<1.0) mg/dL Total Protein 5.9 L (6.3-8.2) g/dL Albumin 3.0 L (3.5-5.0) g/dL Diabetes panel 05/28/21 Range/Units 20:24 Sodium 137 (137-145) mmol/L Potassium 4.0 (3.5-5.1) mmol/L Chloride 107 (98-107) mmol/L Carbon Dioxide 23 (22-30) mmol/L BUN 15 (9-20) mg/dL Creatinine 0.85 (0.66-1.25) mg/dL Glucose 155 H (74-99) mg/dL Calcium 8.5 (8.4-10.2) mg/dL AST 21 (17-59) U/L ALT 29 (4-49) U/L Alkaline Phosphatase 85 (38-126) U/L Total Protein 5.9 L (6.3-8.2) g/dL Albumin 3.0 L (3.5-5.0) g/dL Calcium panel 05/28/21 Range/Units 20:24 Calcium 8.5 (8.4-10.2) mg/dL Albumin 3.0 L (3.5-5.0) g/dL Pituitary panel 05/28/21 Range/Units 20:24 Sodium 137 (137-145) mmol/L Potassium 4.0 (3.5-5.1) mmol/L Chloride 107 (98-107) mmol/L Carbon Dioxide 23 (22-30) mmol/L BUN 15 (9-20) mg/dL Creatinine 0.85 (0.66-1.25) mg/dL Glucose 155 H (74-99) mg/dL Calcium 8.5 (8.4-10.2) mg/dL Adrenal panel 05/28/21 Range/Units 20:24 Sodium 137 (137-145) mmol/L Potassium 4.0 (3.5-5.1) mmol/L Chloride 107 (98-107) mmol/L Carbon Dioxide 23 (22-30) mmol/L BUN 15 (9-20) mg/dL Creatinine 0.85 (0.66-1.25) mg/dL Glucose 155 H (74-99) mg/dL Calcium 8.5 (8.4-10.2) mg/dL Total Bilirubin 0.3 (0.2-1.3) mg/dL AST 21 (17-59) U/L ALT 29 (4-49) U/L Alkaline Phosphatase 85 (38-126) U/L Total Protein 5.9 L (6.3-8.2) g/dL Albumin 3.0 L (3.5-5.0) g/dL - Imaging Comments: Foot x-ray reviewed Assessment and Plan Assessment: 1. Gangrene of right great toe secondary to diabetes mellitus and tobacco abuse 2. Diabetes mellitus 3. Hypertension 4. Tobacco abuse Plan: 1. Arterial ultrasound of the lower extremities ordered 2. Continue antibiotics as ordered 3. Recommend tobacco cessation 4. Further recommendations forthcoming Thank you for this consultation, and allowing us take part in the plan of care of your patient during his hospital stay. The impression and plan of care has been dictated as directed. I performed a history and examination of this patient, discussed the same with the dictator. I agree with the dictator's note ,documented as a scribe. Any additional findings or plans will be noted.
[2021-05-29 13:47] VITALS: BMI 16.9
[2021-05-29] MEDS: ACETAMINOPHEN TAB 325 MG TAB PO PRN ×2 (13:57→21:53)
[2021-05-29 16:26] LABS: Glucose,Whole Blood 266 mg/dL (75-99)
--- NOTE | 2021-05-29 17:07 | XR ---
EXAMINATION: XR chest 2V DATE AND TIME: 05/29/2021 5:00 PM CLINICAL INDICATION: PHH; SOB TECHNIQUE: Departmental protocol COMPARISON: 05/19/2021 FINDINGS: The lungs are clear. The pleural spaces are negative. The cardiac silhouette is not enlarged. The remainder of the mediastinal silhouette is unremarkable. The skeletal structures and soft tissues are negative for acute findings. IMPRESSION: No acute radiographic process.
--- NOTE | 2021-05-29 17:32 | HP ---
HISTORY AND PHYSICAL CHIEF COMPLAINT: Gangrene of the right great toe. HISTORY OF PRESENT ILLNESS: This is another recent admission for this 61-year-old -[place] male. He was in the hospital recently for DKA and general debility and weakness and was sent to [facility] for rehab. It was noted by nursing staff that his right great toe was ischemic and necrotic and he was sent to the emergency room. He has had some discomfort but no chills or fever. REVIEW OF SYSTEMS: Otherwise unremarkable. He has had no headaches, chest pain, shortness of breath, abdominal pain, nausea, vomiting, diarrhea, urinary complaints, etc. He has been on insulin for his blood sugars. Past medical history, family history, and personal and social histories are basically unchanged from his recent admitting and discharge summaries. PHYSICAL EXAMINATION: Blood pressure is 180/100 with a pulse 68, respirations 16. He is afebrile. In general he appeared to be slender, dehydrated and somewhat malnourished. Head, ears, eyes, nose, mouth and throat were normal except for dry mucous membranes in the oral cavity. Neck was supple. Neck veins were not distended. Chest demonstrated slightly decreased breath sounds, but there were no rales or rhonchi. The cardiac exam demonstrated sinus rhythm with no murmurs or extra sounds. The abdomen is flat, soft and nontender. Bowel sounds are present. The extremities are normal except for an ischemic right great toe which was necrotic. The rest of the foot and lower extremities felt warm. Pulses could not be palpated. Neurologically he is intact. He is admitted to the hospital with the diagnoses: 1. Gangrene of the right great toe. 2. Insulin-dependent diabetes mellitus. 3. History of hypertension. 4. Peripheral vascular occlusive disease. 5. Malnutrition. 6. Dehydration. PLAN: 1. Bedrest. 2. IV fluids. 3. Consult with Vascular Surgery. MMODL / IJN: [id number] /
--- NOTE | 2021-05-29 17:39 | PN ---
PROGRESS NOTE DATE OF SERVICE: 05/29/2021 CHIEF COMPLAINT: Gangrene of the right great toe. HISTORY OF PRESENT ILLNESS: This gentleman is doing fairly well. He is comfortable. He has to be seen by Vascular Surgery. He was told that he will likely lose the toe, about which he is not very happy. PHYSICAL EXAMINATION: His chest is clear. Cardiac exam is normal. The abdomen is soft and nontender. The toe seems to be demarcated at the base. IMPRESSION: Gangrene of the right great toe. PLAN: Wait for recommendations from Vascular Surgery. MMODL / IJN: [id number] /
[2021-05-29 20:46] LABS: Glucose,Whole Blood 282 mg/dL (75-99)
[2021-05-29] MEDS ORDERED: ATORVASTATIN 40 MG TAB PO SCH (21:00)
[2021-05-30 06:43] LABS: Glucose,Whole Blood 200 mg/dL (75-99)
[2021-05-30 07:13] LABS: African American GFR (CKD) >90 (>60 ml/min/1.73 sqM); Anion Gap 5 mmol/L; Blood Urea Nitrogen 14 mg/dL (9-20); Calcium 8.7 mg/dL (8.4-10.2); Carbon Dioxide 22 mmol/L (22-30); Chloride 109 mmol/L (98-107); Glucose 202 mg/dL (74-99); Non-African American GFR(CKD) >90 (>60 ml/min/1.73 sqM); Potassium 4.2 mmol/L (3.5-5.1); Sodium 136 mmol/L (137-145)
[2021-05-30] MEDS ORDERED: THIAMINE 100 MG TAB PO SCH (08:00)
[2021-05-30] MEDS ORDERED: FAMOTIDINE 20 MG TAB PO SCH (08:00)
[2021-05-30] MEDS ORDERED: PANTOPRAZOLE 40 MG TABLET PO SCH (08:00)
[2021-05-30] MEDS ORDERED: lisinopriL 20 MG TAB PO SCH (08:00)
[2021-05-30] MEDS ORDERED: INSULIN DETEMIR (LEVEMIR) 100 UNIT/ML SYR SQ SCH ×2 (08:00→21:00)
[2021-05-30] MEDS: INSULIN ASPART (NovoLOG) 100 UNIT/ML VIAL SQ SCH ×2 (08:43→11:32)
[2021-05-30] MEDS ORDERED: PIPERACILLIN-TAZOBACTAM 3.375 GM in SODIUM CHLORIDE 0.9% 100 ML IVPB SCH (10:00)
[2021-05-30 11:18] LABS: Glucose,Whole Blood 222 mg/dL (75-99)
[2021-05-30] MEDS: VANCOMYCIN 1,000 MG in SODIUM CHLORIDE 0.9% 250 ML IVPB SCH ×3 (11:32)
[2021-05-30] MEDS ORDERED: INSULIN ASPART (NovoLOG) 100 UNIT/ML VIAL SQ SCH (12:30)
--- NOTE | 2021-05-30 13:56 | P.PN ---
Subjective Progress Note Date: 05/30/21 Principal diagnosis: Gangrene right great toe Patient seen and examined walk around in his room. He is without any complaints of lower extremity pain. He's been afebrile. He remains on IV antibiotics. He underwent arterial study yesterday that shows Some Diminished Blood Flow to the Right Lower Extremity. Objective - Vital Signs Vital signs: Vital Signs Temp 98.5 F 05/30/21 05:00 Pulse 63 05/30/21 02:50 Resp 15 05/30/21 02:50 BP 154/80 05/30/21 02:50 Pulse Ox 100 05/30/21 02:50 Intake & Output 05/29/21 05/30/21 05/30/21 18:59 06:59 18:59 Intake Total 708 476 Balance 708 476 Weight 56.699 kg Intake: Oral 708 476 Other: # Voids 1 2 - Exam General appearance: The patient is alert, oriented, appears in no acute distress. HET: Head is normocephalic and atraumatic. Neck: Supple without lymphadenopathy. Trachea midline. Extremities: No edema bilateral lower extremities. Right great toe with dry gangrene. Neurological: No focal deficits. Alert and oriented 3. - Labs CBC & Chem 7: 05/28/21 20:24 05/30/21 06:21 Labs: Abnormal Lab Results - Last 24 Hours (Table) 05/28/21 05/29/21 05/29/21 Range/Units 20:24 11:33 16:25 Sodium (137-145) mmol/L Chloride (98-107) mmol/L Glucose (74-99) mg/dL POC Glucose (mg/dL) 324 H 266 H (75-99) mg/dL Hemoglobin A1c 11.8 H (4.0-6.0) % 05/29/21 05/30/21 05/30/21 Range/Units 20:45 06:21 06:41 Sodium 136 L (137-145) mmol/L Chloride 109 H (98-107) mmol/L Glucose 202 H (74-99) mg/dL POC Glucose (mg/dL) 282 H 200 H (75-99) mg/dL Hemoglobin A1c (4.0-6.0) % Assessment and Plan Assessment: 1. Gangrene of right great toe secondary to diabetes mellitus and tobacco abuse 2. Diabetes mellitus with peripheral neuropathy 3. Hypertension 4. Tobacco abuse Plan: 1. Arterial ultrasound of the lower extremities reviewed 2. Do not believe that antibiotics are required does not appear to have any active infection 3. Recommend tobacco cessation 4. No plans for any vascular surgical intervention at this time 5. Recommend outpatient follow-up consider outpatient angiogram Thank you for this consultation, we will sign off at this time. The impression and plan of care has been dictated as directed. Dr. Jones I performed a history and examination of this patient, discussed the same with the dictator. I agree with the dictator's note ,documented as a scribe. Any additional findings or plans will be noted.
[2021-05-30 16:09] VITALS: BP 101/61; PULSE 73; RESP 17; TEMP 98
--- NOTE | 2021-05-30 17:23 | DS ---
DISCHARGE SUMMARY CHIEF COMPLAINT: Gangrene of the right great toe. HISTORY OF PRESENT ILLNESS AND PHYSICAL EXAMINATION: Details of this man's history and physical can be found in the initial workup. LABORATORY STUDIES: While he was in the hospital he had laboratory studies, details of which can be found in the laboratory section of his chart. COURSE IN THE HOSPITAL: After admission he was placed on bedrest, started intravenous fluids and started on management of his diabetes. His sugars were elevated. His insulin program was increased. He was seen by Vascular Surgery. It was felt that he could be discharged back to the detention without antibiotics and they would follow him up in the office. The plan is that the toe will demarcate after which amputation of necrotic tissue will be performed. FINAL DIAGNOSES: 1. Gangrene of the right great toe. 2. Uncontrolled insulin dependent diabetes mellitus. 3. Atherosclerotic cardiovascular disease. 4. Peripheral vascular occlusive disease. 5. Alcoholism. OPERATIONS: None. CONSULTATION: Vascular Surgery. He is improved. MMODL / WINNIEN: [id number] /
[2021-05-30] MEDS ORDERED: VANCOMYCIN TROUGH DUE 1 EACH MISC MISCELLANE ONE (22:00)
== END 2021-05-30 17:00 | disposition home or self-care (01) | DRG 638 ==
LOC: EC 17:34 → 4SSUR 22:36
PROVIDERS: ADMIT Family Medicine; ATTEND Family Medicine
DX: E11.621 Type 2 diabetes mellitus with foot ulcer (principal); E11.52 Type 2 diabetes mellitus with diabetic peripheral angiopathy with gangrene; E11.42 Type 2 diabetes mellitus with diabetic polyneuropathy; F10.20 Alcohol dependence, uncomplicated; F17.210 Nicotine dependence, cigarettes, uncomplicated; I10 Essential (primary) hypertension; I25.10 Atherosclerotic heart disease of native coronary artery without angina pectoris; L08.9 Local infection of the skin and subcutaneous tissue, unspecified; M19.90 Unspecified osteoarthritis, unspecified site; Z20.822 Contact with and (suspected) exposure to COVID-19; Z79.4 Long term (current) use of insulin; Z79.899 Other long term (current) drug therapy; Z82.49 Family history of ischemic heart disease and other diseases of the circulatory system; Z87.442 Personal history of urinary calculi
CPT/HCPCS: 36415; 71046; 80048; 80053; 83036; 83605; 85025; 86140; 87635; 93923; 96365; 96366; 96368; 99285

== ENCOUNTER → 2021-06-12 | Outpatient (CLI) | payer OTHER ==
[2021-06-12 12:39] LABS: Basophils # (A) 0.1 k/uL (0-0.2); Basophils % (A) 1 %; Eosinophils % (A) 15 %; HCT 31.2 % (39.0-53.0); Lymphocytes % (A) 15 %; MCH 30.1 pg (25.0-35.0); MCHC 32.1 g/dL (31.0-37.0); MCV 93.7 fL (80.0-100.0); Mean Platelet Volume 7.5; Monocytes # (A) 0.5 k/uL (0-1.0); Monocytes % (A) 8 %; Neutrophils # (A) 4.1 k/uL (1.3-7.7); Neutrophils % (A) 59 %; Platelet Count 412 k/uL (150-450); RBC 3.33 m/uL (4.30-5.90); RDW 15.9 % (11.5-15.5); WBC 6.9 k/uL (3.8-10.6)
[2021-06-12 12:56] LABS: African American GFR (CKD) >90 (>60 ml/min/1.73 sqM); Anion Gap 5 mmol/L; Blood Urea Nitrogen 15 mg/dL (9-20); Carbon Dioxide 28 mmol/L (22-30); Chloride 108 mmol/L (98-107); Non-African American GFR(CKD) 88 (>60 ml/min/1.73 sqM); Potassium 4.2 mmol/L (3.5-5.1); Sodium 141 mmol/L (137-145)
== END | disposition home or self-care (01) ==
LOC: LABPAT 11:34
PROVIDERS: ATTEND Surgery
DX: Z01.818 Encounter for other preprocedural examination (principal)
CPT/HCPCS: 36415; 80051; 82565; 84520; 85025

== ENCOUNTER 2021-06-17 08:48 | Day surgery (SDC) | payer OTHER ==
[2021-06-16 08:33] VITALS: BMI 18.4
[~2021-06-17 08:48] MED LIST: HYDROmorphone 0.5 MG/0.5 ML SYRINGE IVP PRN; LACTATED RINGERS 1,000 ML IV SCH; LIDOCAINE 1% (10MG/ML) FOR IV START INTRADERMA PRN; ONDANSETRON 4 MG/2 ML VIAL IVP ONE; SCOPOLAMINE 1.5MG/72HR PATCH TRANSDERM ONE
[2021-06-17 09:29] LABS: Glucose,Whole Blood 56 mg/dL (75-99)
[2021-06-17 09:31] LABS: Glucose,Whole Blood 48 mg/dL (75-99)
[2021-06-17] MEDS ORDERED: DEXTROSE 50% SYRINGE 50 ML IVP ONE (09:33)
[2021-06-17 09:47] LABS: Glucose,Whole Blood 164 mg/dL (75-99)
[2021-06-17] MEDS ORDERED: ceFAZolin 1,000 MG VIAL ONE (09:49)
[2021-06-17] MEDS ORDERED: KETAMINE 10 MG/ML 20 ML VIAL ONE (09:49)
[2021-06-17] MEDS ORDERED: SODIUM CHLORIDE 0.9% 100 ML BAG ONE (09:49)
[2021-06-17] MEDS ORDERED: MIDAZOLAM 2 MG/2 ML VIAL ONE (09:49)
[2021-06-17] MEDS ORDERED: PROPOFOL 10 MG/ML 20 ML VIAL IV ONE (09:49)
[2021-06-17] MEDS ORDERED: BUPIVACAINE (PF) 0.25% 30 ML VIAL SQ ONE (11:00)
[2021-06-17 11:20] LABS: Glucose,Whole Blood 83 mg/dL (75-99)
[2021-06-17 11:21] VITALS: TEMP 98
--- NOTE | 2021-06-17 11:36 | P.OP ---
Date of Procedure: 06/17/21 Preoperative Diagnosis: right great toe gangrene Postoperative Diagnosis: same Procedure(s) Performed: right great toe amputation Anesthesia: MADINA Surgeon: Carlos Quiroz Estimated Blood Loss (ml): 10 Pathology: other (right great toe) Condition: stable Disposition: PACU Indications for Procedure: 61 year old gentleman presents to the OR for amputation of the right great toe due to gangrene. He was seen recently in the office for non healing great toe and during that visit there was some worsening fluid draining and therefore decision for amputation was made. Description of Procedure: After written and informed consent was obtained from the patient and all risks, benefits and complications were described the patient was brought to the operative suite and laid in a supine position. The area of the right foot was prepped and draped in the usual sterile fashion, timeout was performed and antibiotics were administered prior to incision. A raquet incision was created with a 15 blade scalpel and dissection was carried around the great toe with electrocautery. Once circumferential dissection was carried around the tissue the toe was then removed with amputation scissors. The metatarsal was then smoothed with a rasp and then irrigated and hemostasis was obtained. The incision was then closed with 4-0 vicryl for the deep dermal and subcutaneous tissue and skin was closed with 2-0 Nylon in a vertical mattress fashion. The area was cleansed and dressings placed. He tolerated the procedure well and was sent to PACU for recovery. Plan - Discharge Summary Discharge Rx Participant: Yes New Discharge Prescriptions: No Action Insulin Aspart [NovoLOG] 6 units SQ TID-W/MEALS Insulin Detemir (Levemir) [Levemir] 30 unit SQ HS Aspirin 325 mg PO DAILY HYDROcodone/APAP 5-325MG [[place] 5-325] 1 tab PO Q6HR PRN PRN Reason: Pain Discharge Medication List Aspirin 325 mg PO DAILY 06/16/21 [History] HYDROcodone/APAP 5-325MG [[place] 5-325] 1 tab PO Q6HR PRN 06/16/21 [History] Insulin Aspart [NovoLOG] 6 units SQ TID-W/MEALS 06/16/21 [History] Insulin Detemir (Levemir) [Levemir] 30 unit SQ HS 06/16/21 [History] Follow up Appointment(s)/Referral(s): Carlos Quiroz DO [STAFF PHYSICIAN] - 1 Week Discharge Disposition: HOME SELF-CARE
[2021-06-17 12:38] VITALS: RESP 18
[2021-06-17 12:42] LABS: Glucose,Whole Blood 59 mg/dL (75-99)
[2021-06-17] MEDS ORDERED: DEXTROSE 50% SYRINGE 50 ML IVP STA (12:45)
[2021-06-17 13:14] LABS: Glucose,Whole Blood 153 mg/dL (75-99)
[2021-06-17 13:17] VITALS: BP 159/86; PULSE 58
== END 2021-06-17 13:42 | disposition home or self-care (01) ==
LOC: OR 08:48
PROVIDERS: ATTEND Surgery
DX: E11.52 Type 2 diabetes mellitus with diabetic peripheral angiopathy with gangrene (principal); I96 Gangrene, not elsewhere classified; I10 Essential (primary) hypertension; R56.9 Unspecified convulsions; F17.200 Nicotine dependence, unspecified, uncomplicated; K21.9 Gastro-esophageal reflux disease without esophagitis; Z79.4 Long term (current) use of insulin; Z79.82 Long term (current) use of aspirin; Z87.442 Personal history of urinary calculi; Z82.49 Family history of ischemic heart disease and other diseases of the circulatory system; Z83.3 Family history of diabetes mellitus
CPT/HCPCS: 28820; J2250; J2405; J0690; J2704; 88305; 88311